=== PATIENT | male | born 1985 | race Caucasian/White ===

== ENCOUNTER 2017-09-18 15:12 | Emergency (ER) | payer MEDICAID ==
--- NOTE | 2017-09-18 15:39 | ER Document Report ---
ED GI/ - General Chief Complaint: Abdominal Pain Stated Complaint: ABDOMINAL PAIN Time Seen by Provider: 09/18/17 15:26 Mode of Arrival: Ambulatory Information source: Patient - HPI Patient complains to provider of: Abdominal pain Notes: 09/18/17 15:37 Patient is here with complaints of abdominal pain. The patient has a history of umbilical hernia. States that he has not had time to have this fixed over the last 3 years. States that earlier today he is the hernia was causing him a great deal of pain. States that it felt hard to the touch. He had one episode of vomiting. No fevers. No diarrhea. No blood thinners. No dysuria or hematuria. No chest pain or shortness of breath. Patient was brought in by EMS. He was given 100 mg of fentanyl which improved his pain. I was able to Trendelenburg the patient and reduce the umbilical hernia, he states that he is feeling significantly better at this time. No other complaints at this time. - Related Data Allergies/Adverse Reactions: No Known Allergies Allergy (Unverified 09/18/17 16:00) Past Medical History - Social History Smoking Status: Unknown if Ever Smoked Family History: Reviewed & Not Pertinent Review of Systems - Review of Systems -: Yes All other systems reviewed and negative Physical Exam - Vital signs Vitals: Temp Pulse Resp BP Pulse Ox 97.5 F 90 18 146/86 H 98 09/18/17 15:27 09/18/17 15:27 09/18/17 15:27 09/18/17 15:27 09/18/17 15:27 - Notes Notes: GENERAL: alert, cooperative, nontoxic, no distress. HEAD: normocephalic, atraumatic EYES: conjunctiva pink without discharge, no external redness or swelling. EARS: no external swelling, no external redness NOSE: atraumatic, no external swelling MOUTH/THROAT: mucous membranes moist and pink, posterior pharynx without erythema, swelling, exudate. No trismus or drooling. NECK: soft, supple, full range of motion, no meningismus. CHEST: no distress, lungs clear and equal throughout. No wheezing, rales, rhonchi. CARDIAC: regular rate and rhythm, no murmur, normal capillary refill, normal pulses. No peripheral edema noted. ABDOMEN: Obese abdomen. Soft. Large umbilical hernia identified. Somewhat firm initially. I was able to reduce the hernia and it became soft and nontender. No other mass identified. BACK: full range of motion, no CVA tenderness. EXTREMITIES: full range of motion of all extremities. No redness, no swelling. NEURO: alert and oriented x 3, no focal deficits, full range of motion of all extremities. PYSCH: appropriate mood, affect. Patient is cooperative. SKIN: pink, warm, dry, no rash. Course - Re-evaluation Re-evalutation: 09/18/17 15:38 Patient noted to have a large umbilical hernia which is moderately tender and semi-firm to touch. I placed the patient in a Trendelenburg position and by applying gentle pressure, was able to reduce the umbilical hernia. Patient will have an IV established, have blood work drawn we will obtain a CT to ensure that the patient does not have any sign of incarcerated hernia. 09/18/17 18:19 Patient is nontoxic appearing with stable vitals. Patient is here with complaints of abdominal pain in his umbilical hernia. When he arrived to the emergency department, he appeared to have a partially incarcerated hernia. I was able to easily reduce this and the patient has a significant reduction in pain. His lab work is all unremarkable, lactate is normal, CT of the abdomen and pelvis shows a fat-containing umbilical hernia with no incarcerated hernia. This point the patient is feeling significantly better. At this point the patient can be discharged home with a referral to surgery. He is instructed to avoid any heavy lifting. To apply an abdominal binder. Follow-up with the surgeon at the next available appointment. Follow-up sooner for worsening pain , fever, persistent vomiting, or for any further concerns. The patient is noted to have elevated blood pressure during today's emergency department visit. The patient was informed of this finding. The patient was instructed that this may be related to pre-hypertension and requires further evaluation with a primary care provider. The patient has no hypertensive symptoms at this time. The patient's emergency department workup and current diagnosis were explained to the patient and or family. Follow-up instructions were provided. Medications if prescribed were discussed. Instructions for when to return to the emergency department including specific worrisome symptoms were discussed with the patient and/or family. - Vital Signs Vital signs: Temp Pulse Resp BP Pulse Ox 97.5 F 90 18 146/86 H 98 09/18/17 15:27 09/18/17 15:27 09/18/17 15:27 09/18/17 15:27 09/18/17 15:27 - Laboratory Result Diagrams: 09/18/17 16:01 09/18/17 16:01 Laboratory results interpreted by me: 09/18/17 09/18/17 09/18/17 16:01 16:01 17:01 MCV 79 L MCH 26.8 L RDW 14.4 H Eosinophils % 7.4 H Absolute Eosinophils 0.7 H Carbon Dioxide 34 H Glucose 120 H Urine Urobilinogen 2.0 H Urine Ascorbic Acid 40 H - Diagnostic Test Radiology reviewed: Image reviewed, Reports reviewed - Fat-containing umbilical hernia. Discharge - Discharge Clinical Impression: Umbilical hernia Qualifiers: Obstruction and gangrene presence: without obstruction or gangrene Qualified Code(s): K42.9 - Umbilical hernia without obstruction or gangrene Condition: Stable Disposition: HOME, SELF-CARE Instructions: Umbilical Hernia ([facility]), Hernia ([facility]) Additional Instructions: Tylenol Motrin as needed for pain. Drink plenty of fluids. Follow-up with surgery at the next available appointment. Avoid any heavy lifting. Abdominal binder to help prevent worsening abdominal pain. Follow-up sooner for worsening pain, fever, persistent vomiting, or for any further concerns. Your blood pressure was elevated during today's visit. Have this rechecked with your doctor. Forms: Elevated Blood Pressure, Smoking Cessation Education Referrals: FRANCK BYRNES MD [ACTIVE STAFF] - Follow up as needed
[2017-09-18 16:16] LABS: ABSOLUTE BASOPHILS # (AUTO) 0.1 10^3/uL (0.0-0.2); ABSOLUTE EOSINOPHILS # (AUTO) 0.7 10^3/uL (0.0-0.6); ABSOLUTE LYMPHOCYTES (AUTO) 1.5 10^3/uL (0.5-4.7); ABSOLUTE MONOCYTES (AUTO) 0.7 10^3/uL (0.1-1.4); ABSOLUTE NEUT (AUTO) 6.7 10^3/uL (1.7-8.2); BASOPHILS % (AUTO) 0.5 % (0-2); EOSINOPHILS % (AUTO) 7.4 % (0-6); HEMATOCRIT 43.4 % (37.9-51.0); HEMOGLOBIN 14.6 g/dL (13.5-17.0); LYMPHOCYTES % (AUTO) 15.9 % (13-45); MEAN CORPUSCULAR HEMOGLOBIN 26.8 pg (27.0-33.4); MEAN CORPUSCULAR HGB CONC 33.7 g/dL (32.0-36.0); MEAN CORPUSCULAR VOLUME 79 fl (80-97); MONOCYTES % (AUTO) 6.9 % (3-13); PLATELET COUNT 269 10^3/uL (150-450); RED BLOOD COUNT 5.47 10^6/uL (4.35-5.55); RED CELL DISTRIBUTION WIDTH 14.4 % (11.5-14.0); SEGMENTED NEUTROPHILS % (AUTO) 69.3 % (42-78); TOTAL CELLS COUNTED % (AUTO) 100 %; WHITE BLOOD COUNT 9.6 10^3/uL (4.0-10.5)
[2017-09-18 16:27] LABS: ALANINE AMINOTRANSFERASE 38 U/L (21-72); ALBUMIN 3.9 g/dL (3.5-5.0); ALKALINE PHOSPHATASE 70 U/L (38-126); ANION GAP 8 (5-19); ASPARTATE AMINO TRANSFERASE 19 U/L (17-59); BILIRUBIN,DIRECT 0.2 mg/dL (0.0-0.4); BILIRUBIN,TOTAL 0.3 mg/dL (0.2-1.3); BLOOD UREA NITROGEN 13 mg/dL (7-20); CALCIUM 9.1 mg/dL (8.4-10.2); CARBON DIOXIDE 34 mmol/L (22-30); CHLORIDE 100 mmol/L (98-107); GLUCOSE 120 mg/dL (75-110); LIPASE 74.1 U/L (23-300); POTASSIUM 4.3 mmol/L (3.6-5.0); SODIUM 141.9 mmol/L (137-145); TOTAL PROTEIN 6.9 g/dL (6.3-8.2)
--- NOTE | 2017-09-18 17:13 | RADIOLOGY REPORT (SQ) ---
EXAM DESCRIPTION: CT ABD/PELVIS WITH IV ONLY COMPLETED DATE/TIME: 09/18/2017 4:50 pm REASON FOR STUDY: umbilcal hernia, abdo pain COMPARISON: None. TECHNIQUE: CT scan of the abdomen and pelvis performed using helical scanning technique with dynamic intravenous contrast injection. No oral contrast. Images reviewed with lung, soft tissue, and bone windows. Reconstructed coronal and sagittal MPR images reviewed. Delayed images for evaluation of the urinary system also acquired. All images stored on PACS. All CT scanners at this facility use dose modulation, iterative reconstruction, and/or weight based d osing when appropriate to reduce radiation dose to as low as reasonably achievable (ALARA). [facility]: Dose Right [facility]: CareDose [facility]: Dose Right [facility]: Teradose 4D [facility]: [email or web address] CONTRAST TYPE AND DOSE: contrast/concentration: Isovue 370.00 mg/ml; Total Contrast Delivered: 100.0 ml; Total Saline Delivered: 61.0 ml RENAL FUNCTION: Creatinine 0.7 RADIATION DOSE: CT Rad equipment meets quality standard of care and radiation dose reduction techniq ues were employed. CTDIvol: 21.1 - 21.1 mGy. DLP: 2530 mGy-cm.. LIMITATIONS: None. FINDINGS: LOWER CHEST: No significant findings. No nodules or infiltrates. LIVER: Normal size. No masses. No dilated ducts. SPLEEN: Normal size. No focal lesions. PANCREAS: No masses. No significant calcifications. No adjacent inflammation or peripancreatic fluid collections. Pancreatic duct not dilated. GALLBLADDER: No identified stones by CT criteria. No inflammatory changes to suggest cholecystitis. ADRENAL GLANDS: No significant masses or asymmetry. RIGHT KIDNEY AND URETER: No solid masses. No significant calcifications. No hydronephrosis or hyd roureter. LEFT KIDNEY AND URETER: No solid masses. No significant calcifications. No hydronephrosis or hydr oureter. AORTA AND VESSELS: No aneurysm. No dissection. Renal arteries, SMA, celiac without stenosis. RETROPERITONEUM: No retroperitoneal adenopathy, hemorrhage or masses. BOWEL AND PERITONEAL CAVITY: No masses or inflammatory changes. No free fluid or peritoneal masses. No CT evidence of bowel obstruction. APPENDIX: Normal. PELVIS: No mass. No free fluid. Normal bladder. ABDOMINAL WALL: There is an umbilical hernia with a 3.5 cm diameter defect at the umbilicus. On ment al fat has herniated into the defect without CT evidence of fat necrosis or inflammation BONES: No significant or acute findings. OTHER: No other significant finding. IMPRESSION: Fat containing umbilical hernia TECHNICAL DOCUMENTATION: JOB ID: [id number] Quality ID # [id number]: Final reports with documentation of one or more dose reduction techniques (e.g., Au tomated exposure control, adjustment of the mA and/or kV according to patient size, use of iterative reconstruction technique) 2010 [employer]- All Rights Reserved Reading location - IP/workstation name: [email or web address]
[2017-09-18 17:29] LABS: APPEARANCE,URINE CLEAR; BILIRUBIN,URINE NEGATIVE (NEGATIVE); COLOR,URINE YELLOW; GLUCOSE, URINE NEGATIVE (NEGATIVE); KETONES,URINE NEGATIVE (NEGATIVE); LEUKOCYTE ESTERASE,URINE NEGATIVE (NEGATIVE); NITRITE,URINE NEGATIVE (NEGATIVE); PROTEIN,URINE NEGATIVE (NEGATIVE); URINE SPECIFIC GRAVITY 1.043
[2017-09-18 19:22] VITALS: BP 140/86
== END 2017-09-18 19:00 | disposition home or self-care (01) ==
LOC: ER 15:12
DX: K42.9 Umbilical hernia without obstruction or gangrene (principal); R10.9 Unspecified abdominal pain
CPT/HCPCS: 36415; 74177; 80053; 81001; 83605; 83690; 85025; 99284

== ENCOUNTER 2017-10-14 04:51 | Emergency (ER) | payer MEDICAID ==
[2017-10-14 06:05] LABS: APPEARANCE,URINE CLOUDY; BILIRUBIN,URINE NEGATIVE (NEGATIVE); COLOR,URINE YELLOW; GLUCOSE, URINE NEGATIVE (NEGATIVE); KETONES,URINE NEGATIVE (NEGATIVE); LEUKOCYTE ESTERASE,URINE LARGE (NEGATIVE); NITRITE,URINE NEGATIVE (NEGATIVE); PROTEIN,URINE 100 mg/dL (NEGATIVE); URINE SPECIFIC GRAVITY 1.021; UROBILINOGEN,URINE NEGATIVE mg/dL (<2.0)
[2017-10-14] MEDS ORDERED: LIDOCAINE 1% INJ-PF (10 MG/ML) 30 ML SDV INJ ONE (06:13)
[2017-10-14] MEDS ORDERED: CEFTRIAXONE INJ 1000 MG VIAL IM ONE (06:13)
--- NOTE | 2017-10-14 06:22 | ER Document Report ---
ED GI/ - General Chief Complaint: Urinary Problem Stated Complaint: BLOOD IN URINE Time Seen by Provider: 10/14/17 06:13 Mode of Arrival: Ambulatory Information source: Patient Notes: Patient is patient is a 31-year-old male who presents to the ER today for 2 days of burning with urination, seeing blood in his urine and body aches. Patient denies any fevers that he knows of but he has not taken his temperature. Patient denies any history of kidney stones or urinary tract infections. Patient is not concerned about any STDs and has had no penile drainage. Patient has no pain to the back or abdomen at all. - Related Data Allergies/Adverse Reactions: No Known Allergies Allergy (Unverified 09/18/17 16:00) Past Medical History - General Information source: Patient - Social History Smoking Status: Unknown if Ever Smoked Family History: Reviewed & Not Pertinent Patient has suicidal ideation: No Patient has homicidal ideation: No Pulmonary Medical History: Reports: Hx Pneumonia Renal/ Medical History: Denies: Hx Peritoneal Dialysis Review of Systems - Review of Systems Constitutional: See HPI EENT: No symptoms reported Cardiovascular: No symptoms reported Respiratory: No symptoms reported Gastrointestinal: No symptoms reported Genitourinary: See HPI Male Genitourinary: No symptoms reported Musculoskeletal: No symptoms reported Skin: No symptoms reported Hematologic/Lymphatic: No symptoms reported Neurological/Psychological: No symptoms reported Physical Exam - Vital signs Vitals: Temp Pulse Resp BP Pulse Ox 99.0 F 117 H 18 141/89 H 97 10/14/17 05:00 10/14/17 05:00 10/14/17 05:00 10/14/17 05:00 10/14/17 05:00 - Notes Notes: PHYSICAL EXAMINATION: GENERAL: Mildly ill-appearing, but in no acute distress. HEAD: Atraumatic, normocephalic. EYES: Pupils equal round and reactive to light, extraocular movements intact, sclera anicteric, conjunctiva are normal. NECK: Normal range of motion, supple without lymphadenopathy LUNGS: CTAB and equal. No wheezes rales or rhonchi. HEART: Regular rate and rhythm without murmurs ABDOMEN: Soft, no tenderness. No guarding, no rebound BACK: no vertebral tenderness, normal ROM GI/: no CVA tenderness EXTREMITIES: Normal range of motion, no pitting edema. No cyanosis. NEUROLOGICAL: Cranial nerves grossly intact. Normal sensory/motor exams. PSYCH: Normal mood, normal affect. SKIN: Warm, Dry, normal turgor, no rashes or lesions noted Course - Re-evaluation Re-evalutation: 10/14/17 07:49 Patient has greater than 182 white blood cells and urinalysis, leukocytes, blood , patient given Rocephin injection here, placed on Cipro I did advise patient that if he starts getting urinary tract infections more frequently or even just the next time he gets when he should see a urologist as it is not normal for males to have urinary tract infections. I did not do any radiology today to search for stone as he has no pain whatsoever. - Vital Signs Vital signs: Temp Pulse Resp BP Pulse Ox 99.4 F 116 H 13 129/75 H 100 10/14/17 06:45 10/14/17 06:45 10/14/17 06:45 10/14/17 06:45 10/14/17 06:45 - Laboratory Laboratory results interpreted by me: 10/14/17 05:50 Urine Protein 100 H Urine Blood LARGE H Ur Leukocyte Esterase LARGE H Urine Ascorbic Acid 20 H Discharge - Discharge Clinical Impression: UTI (urinary tract infection) Qualifiers: Urinary tract infection type: site unspecified Hematuria presence: with hematuria Qualified Code(s): N39.0 - Urinary tract infection, site not specified Condition: Stable Disposition: HOME, SELF-CARE Additional Instructions: Return immediately for any new or worsening symptoms. Follow up with primary care provider, call tomorrow to make followup appointment. Drink plenty of water, refrain from drinking sodas. Prescriptions: Ciprofloxacin HCl [Cipro 500 mg Tablet] 500 mg PO BID #14 tablet Forms: Return to Work
[2017-10-14 06:51] VITALS: BP 129/75
== END 2017-10-14 06:51 | disposition home or self-care (01) ==
LOC: ER 04:51
DX: N39.0 Urinary tract infection, site not specified (principal); R31.9 Hematuria, unspecified; M79.1 Myalgia
CPT/HCPCS: 99283; 96372; 81001; J3490; J0696

== ENCOUNTER → 2017-12-17 | Outpatient (CLI) | payer MEDICAID ==
[2017-12-17 11:47] LABS: ABSOLUTE EOSINOPHILS # (AUTO) 0.9 10^3/uL (0.0-0.6); ABSOLUTE LYMPHOCYTES (AUTO) 1.9 10^3/uL (0.5-4.7); ABSOLUTE MONOCYTES (AUTO) 0.6 10^3/uL (0.1-1.4); ABSOLUTE NEUT (AUTO) 6.4 10^3/uL (1.7-8.2); BASOPHILS % (AUTO) 0.5 % (0-2); HEMATOCRIT 43.6 % (37.9-51.0); HEMOGLOBIN 14.5 g/dL (13.5-17.0); LYMPHOCYTES % (AUTO) 19.5 % (13-45); MEAN CORPUSCULAR HEMOGLOBIN 26.2 pg (27.0-33.4); MEAN CORPUSCULAR HGB CONC 33.2 g/dL (32.0-36.0); MEAN CORPUSCULAR VOLUME 79 fl (80-97); MONOCYTES % (AUTO) 5.7 % (3-13); PLATELET COUNT 287 10^3/uL (150-450); RED BLOOD COUNT 5.53 10^6/uL (4.35-5.55); RED CELL DISTRIBUTION WIDTH 15.2 % (11.5-14.0); SEGMENTED NEUTROPHILS % (AUTO) 65.3 % (42-78); TOTAL CELLS COUNTED % (AUTO) 100 %; WHITE BLOOD COUNT 9.8 10^3/uL (4.0-10.5)
[2017-12-17 12:16] LABS: APPEARANCE,URINE CLEAR; BILIRUBIN,URINE NEGATIVE (NEGATIVE); COLOR,URINE YELLOW; GLUCOSE, URINE NEGATIVE (NEGATIVE); KETONES,URINE NEGATIVE (NEGATIVE); LEUKOCYTE ESTERASE,URINE NEGATIVE (NEGATIVE); NITRITE,URINE NEGATIVE (NEGATIVE); PROTEIN,URINE NEGATIVE (NEGATIVE); URINE SPECIFIC GRAVITY 1.024; UROBILINOGEN,URINE NEGATIVE mg/dL (<2.0)
[2017-12-17 13:11] LABS: ALANINE AMINOTRANSFERASE 45 U/L (21-72); ALKALINE PHOSPHATASE 82 U/L (38-126); ANION GAP 9 (5-19); ASPARTATE AMINO TRANSFERASE 27 U/L (17-59); BILIRUBIN,DIRECT 0.3 mg/dL (0.0-0.4); BILIRUBIN,TOTAL 0.7 mg/dL (0.2-1.3); BLOOD UREA NITROGEN 13 mg/dL (7-20); CALCIUM 9.1 mg/dL (8.4-10.2); CARBON DIOXIDE 32 mmol/L (22-30); CHLORIDE 102 mmol/L (98-107); CHOLESTEROL 155.78 mg/dL (0-200); GLUCOSE 105 mg/dL (75-110); POTASSIUM 4.6 mmol/L (3.6-5.0); SODIUM 143.1 mmol/L (137-145); TOTAL PROTEIN 7.3 g/dL (6.3-8.2); TRIGLYCERIDES 231 mg/dL (<150)
[2017-12-17 13:23] LABS: DIRECT LDL 87 mg/dL (<100)
[2017-12-17 13:25] LABS: VLDL CHOLESTEROL 46.2 mg/dL (10-31)
== END ==
LOC: LAB 10:45
PROVIDERS: ATTEND Internal Medicine
DX: Z00.00 Encounter for general adult medical examination without abnormal findings (principal)
CPT/HCPCS: 36415; 80053; 80061; 81001; 84443; 85025

== ENCOUNTER 2019-08-22 20:35 | Emergency (ER) | payer SELFPAY ==
[2019-08-22] MEDS ORDERED: LIDOCAINE 1%/EPINEPHRINE INJ 20 ML VIAL INJ ONE (20:48)
--- NOTE | 2019-08-22 21:13 | ER Document Report ---
ED General - General Chief Complaint: Skin Problem Stated Complaint: RIGHT LEG BLEEDING Notes: Patient is a 33-year-old white male with past medical history of morbid obesity and varicose veins of the legs who presents to the emergency department with a chief complaint of bleeding varicosity to the right lower anterior extremity that began just prior to arrival. Patient states that he had a scab in this area, reached down to scratch it because it itched and he scratched the scab off which led to bleeding from a pinpoint hole. Patient states he applied pressure with a towel but every time he would remove the towel the wound would continue to ooze blood rapidly. His friend called EMS who wrapped the patient with a hemostatic dressing. Patient then reported here for evaluation. He denies any blunt trauma, fall injury or numbness, tingling or weakness. TRAVEL OUTSIDE OF THE [place] IN LAST 30 DAYS: No - Related Data Allergies/Adverse Reactions: No Known Allergies Allergy (Unverified 09/18/17 16:00) Past Medical History - Social History Smoking Status: Current Every Day Smoker Family History: Reviewed & Not Pertinent Patient has suicidal ideation: No Patient has homicidal ideation: No Pulmonary Medical History: Reports: Hx Pneumonia Renal/ Medical History: Denies: Hx Peritoneal Dialysis Review of Systems - Review of Systems Skin: Lesions Hematologic/Lymphatic: Other - Bleeding -: Yes All other systems reviewed and negative Physical Exam - Vital signs Vitals: Temp Pulse Resp BP Pulse Ox 98.1 F 116 H 18 164/88 H 97 08/22/19 20:42 08/22/19 20:42 08/22/19 20:42 08/22/19 20:42 08/22/19 20:42 - General General appearance: Appears well, Alert - Respiratory Respiratory status: No respiratory distress Chest status: Nontender Breath sounds: Normal Chest palpation: Normal - Cardiovascular Rhythm: Regular Heart sounds: Normal auscultation - Extremities General lower extremity: Other - Nonpitting lower extremity edema. Diffuse varicosities noted. Bleeding from a pinpoint area to the right anterior lower extremity. Course - Re-evaluation Re-evalutation: 08/22/19 21:27 Cautery procedure: The bandage was removed small oozing of bright red blood noted from a pinpoint area in the right lower anterior leg. Leg was then prepped and draped in a sterile fashion. 1% lidocaine with epinephrine was infiltrated causing a slowing of the bleeding. The wound was then cauterized using thermal cautery. Hemostasis was achieved. Patient tolerated well. Was bandaged with a hemostatic dressing. 08/22/19 21:28 We discussed wound care measures and the importance of follow-up for reevaluation. Advised to return here or any ER immediately with any new, pers istent or worsening symptoms. He verbalized understood and agreed. - Vital Signs Vital signs: Temp Pulse Resp BP Pulse Ox 98.1 F 116 H 18 164/88 H 97 08/22/19 20:42 08/22/19 20:42 08/22/19 20:42 08/22/19 20:42 08/22/19 20:42 Discharge - Discharge Clinical Impression: Bleeding from varicose vein Condition: Stable Disposition: HOME, SELF-CARE Instructions: Varicose Veins ([facility]) Additional Instructions: Follow-up with your regular doctor in 2 to 3 days for reevaluation. Return here or any ER immediately with any new, persistent or worsening symptoms.
[2019-08-22 21:39] VITALS: BP 142/73
== END 2019-08-22 22:01 | disposition home or self-care (01) ==
LOC: ER 20:35
DX: I83.891 Varicose veins of right lower extremity with other complications (principal); F17.200 Nicotine dependence, unspecified, uncomplicated; R60.0 Localized edema
CPT/HCPCS: 99283; J3490

== ENCOUNTER 2020-04-06 01:49 | Inpatient (IN) | payer MEDICAID ==
[2020-04-06 03:14] LABS: ABSOLUTE BASOPHILS # (AUTO) 0.1 10^3/uL (0.0-0.2); ABSOLUTE EOSINOPHILS # (AUTO) 0.4 10^3/uL (0.0-0.6); ABSOLUTE LYMPHOCYTES (AUTO) 1.1 10^3/uL (0.5-4.7); ABSOLUTE MONOCYTES (AUTO) 0.5 10^3/uL (0.1-1.4); ABSOLUTE NEUT (AUTO) 10.1 10^3/uL (1.7-8.2); BASOPHILS % (AUTO) 0.8 % (0-2); EOSINOPHILS % (AUTO) 2.9 % (0-6); HEMATOCRIT 42.3 % (37.9-51.0); HEMOGLOBIN 14.2 g/dL (13.5-17.0); LYMPHOCYTES % (AUTO) 9.4 % (13-45); MEAN CORPUSCULAR HEMOGLOBIN 26.2 pg (27.0-33.4); MEAN CORPUSCULAR HGB CONC 33.6 g/dL (32.0-36.0); MEAN CORPUSCULAR VOLUME 78 fl (80-97); PLATELET COUNT 339 10^3/uL (150-450); RED BLOOD COUNT 5.43 10^6/uL (4.35-5.55); RED CELL DISTRIBUTION WIDTH 15.8 % (11.5-14.0); SEGMENTED NEUTROPHILS % (AUTO) 82.9 % (42-78); TOTAL CELLS COUNTED % (AUTO) 100 %; WHITE BLOOD COUNT 12.2 10^3/uL (4.0-10.5)
[2020-04-06 03:49] LABS: ALBUMIN 4.1 g/dL (3.5-5.0); ALKALINE PHOSPHATASE 95 U/L (38-126); ANION GAP 12 (5-19); ASPARTATE AMINO TRANSFERASE 26 U/L (17-59); BILIRUBIN,DIRECT 0.1 mg/dL (0.0-0.4); BILIRUBIN,TOTAL 0.6 mg/dL (0.2-1.3); BLOOD UREA NITROGEN 12 mg/dL (7-20); CALCIUM 9.5 mg/dL (8.4-10.2); CARBON DIOXIDE 26 mmol/L (22-30); CHLORIDE 102 mmol/L (98-107); GLUCOSE 187 mg/dL (75-110); POTASSIUM 3.9 mmol/L (3.6-5.0); TOTAL PROTEIN 7.4 g/dL (6.3-8.2)
[2020-04-06] MEDS ORDERED: MORPHINE SULFATE 10 MG/ML INJ IM ONE (06:04)
[2020-04-06] MEDS ORDERED: MORPHINE SULFATE 10 MG/ML INJ IV ONE ×2 (06:30→07:45)
[2020-04-06] MEDS ORDERED: ONDANSETRON HCL INJ/PF 4 MG/2 ML SDV IV ONE (06:30)
[2020-04-06] MEDS ORDERED: NORMAL SALINE 1000 ML 1,000 ML IV PRN ×2 (06:36→07:03)
--- NOTE | 2020-04-06 06:45 | ER Document Report ---
ED General - General Chief Complaint: Abdominal Pain Stated Complaint: ABDOMINAL PAIN Time Seen by Provider: 04/06/20 06:07 TRAVEL OUTSIDE OF THE [place] IN LAST 30 DAYS: No - HPI Notes: Chief complaint: Abdominal pain and vomiting History of present illness: 34-year-old obese male taking no regular medications with no known allergies presents now with abdominal pain and vomiting since yesterday afternoon. Patient has had a longstanding history of a large umbilical hernia. Says he is seeing a surgeon elsewhere previously regarding elective repair but was told with his BMI was too high and he should lose weight before they consider surgery. He denies fever chills. Last bowel movement yesterday. Severe pain at this time and the area of the hernia. Also we note that there is ulceration of the umbilical area with yellow drainage and he says this is been present for over a month. - Related Data Allergies/Adverse Reactions: No Known Allergies Allergy (Verified 04/06/20 02:31) Past Medical History - General Information source: Patient, [facility] Records - Social History Smoking Status: Current Every Day Smoker Frequency of alcohol use: None Drug Abuse: None Family History: Reviewed & Not Pertinent Pulmonary Medical History: Reports: Hx Pneumonia Renal/ Medical History: Denies: Hx Peritoneal Dialysis Surgical Hx: Negative Review of Systems - Review of Systems Notes: Constitutional: Negative for fever. HENT: Negative for sore throat. Eyes: Negative for visual changes. Cardiovascular: Negative for chest pain. Respiratory: Negative for shortness of breath. Gastrointestinal: As per HPI Genitourinary: Negative for dysuria. Musculoskeletal: Negative for back pain. Skin: Negative for rash. Neurological: Negative for headaches, weakness or numbness. 10 point ROS negative except as marked above and in HPI. Physical Exam - Vital signs Vitals: Temp Pulse Resp BP Pulse Ox 97.3 F 81 16 148/90 H 100 04/06/20 02:41 04/06/20 02:41 04/06/20 02:41 04/06/20 02:41 04/06/20 02:41 - Notes Notes: GENERAL: Morbidly obese male with massive umbilical hernia who is writhing in pain and retching. SKIN: Good turgor no rashes. HEAD: Normocephalic atraumatic. EYES: PERRLA. EOMI. Conjunctivae and sclerae clear. EARS: CANALS AND TMS CLEAR. NOSE: CLEAR. MOUTH: Dry oral mucosa. Good dentition. No stridor or edema. No drooling. NECK: Supple. No masses or thyromegaly. No adenopathy. Carotids 2+ without bruits. No JVD. BACK: Symmetrical without tenderness. CHEST: Respirations unlabored. Breath sounds clear and symmetrical. HEART: Regular rhythm. No murmur gallop or rub. ABDOMEN: Obese male with massive umbilical hernia which is indurated and tender with redness present. There is shallow ulceration of the umbilicus with some crusted yellow drainage. Multiple excoriated skin lesions of the abdominal wall. Bowel sounds are absent. GENITALIA: Deferred. EXTREMITIES: 1+ bilateral pretibial edema. Prominent varicose veins both lower legs. No calf tenderness. Cap refill less than 1.5 seconds. Dorsalis pedis and posterior tibial pulses 3+ and symmetrical. NEUROLOGICAL: GCS 15. Alert and oriented x3. Fluent speech. Cranial nerves II through XII intact. Sensorimotor and cerebellar normal. Normal tone. PSYCHIATRIC: Anxious affect. Course - Re-evaluation Re-evalutation: 04/06/20 06:45 This appears to be an incarcerated hernia. Patient is kept n.p.o. we will give him IV hydration. I have consulted Dr. Nathan the surgical list legal operations manager. Patient has received normal saline, IV morphine and IV Zofran at this time. - Vital Signs Vital signs: Temp Pulse Resp BP Pulse Ox 97.7 F 87 26 H 148/79 H 99 04/06/20 03:11 04/06/20 03:11 04/06/20 03:11 04/06/20 03:11 04/06/20 03:11 - Laboratory Result Diagrams: 04/06/20 02:54 04/06/20 02:54 Laboratory results interpreted by me: 04/06/20 04/06/20 02:54 02:54 WBC 12.2 H MCV 78 L MCH 26.2 L RDW 15.8 H Lymph % (Auto) 9.4 L Absolute Neuts (auto) 10.1 H Seg Neutrophils % 82.9 H Glucose 187 H Discharge - Discharge Clinical Impression: Umbilical hernia, incarcerated Condition: Serious Disposition: ADMITTED INPATIENT Admitting Provider: Surgicalist Unit Admitted: OR
--- NOTE | 2020-04-06 07:00 | PDOC H&P ---
History of Present Illness Patient complains of: Abdominal pain History of Present Illness: JAZMINE LEO is a 34 year old male Who presents emergency department via ground rescue complaining of a 1 day history of abdominal pain, worsening at the skin overlying the umbilicus. Patient has a history of morbid obesity, COPD, acne abuse, uncontrolled diabetes, and 5year history of chronic umbilical hernia. He was seen by surgeon and told he needs to lose weight before the operation was offered. He is seen in the emergency department brought back after 5 hours evaluated found to have an incarcerated umbilical hernia with overlying excoriated skin. Surgery was consulted and he was advised admission. Past Medical History Past Medical History: Obesity, varicose veins, COPD, smoking abuse, skin condition Pulmonary Medical History: Reports: Pneumonia Past Surgical History Past Surgical History: ORIF ankle Social History Information Source: Patient Smoking Status: Current Every Day Smoker Electronic Cigarette use?: No Frequency of Alcohol Use: Rare Hx Recreational Drug Use: No Hx Prescription Drug Abuse: No Family History Family History: None, Reviewed & Not Pertinent Parental Family History Reviewed: No Children Family History Reviewed: No Sibling(s) Family History Reviewed.: No Medication/Allergy Home Medications: Ciprofloxacin HCl [Cipro 500 mg Tablet] 500 mg PO BID #14 tablet 10/14/17 Allergies/Adverse Reactions: No Known Allergies Allergy (Verified 04/06/20 02:31) Review of Systems Constitutional: PRESENT: as per HPI Eyes: ABSENT: visual disturbances Ears: ABSENT: hearing changes Cardiovascular: ABSENT: chest pain, dyspnea on exertion, edema, orthropnea, palpitations Gastrointestinal: PRESENT: other - Last bowel movement yesterday, normal; last meal 9 PM last night Musculoskeletal: PRESENT: other - Varicose veins Neurological: PRESENT: other - No gross deficits Physical Exam Vital Signs: Temp Pulse Resp BP Pulse Ox 97.7 F 87 26 H 148/79 H 99 04/06/20 03:11 04/06/20 03:11 04/06/20 03:11 04/06/20 03:11 04/06/20 03:11 Intake & Output 04/04/20 04/05/20 04/06/20 06:59 06:59 06:59 Weight 166.3 kg General appearance: PRESENT: mild distress Head exam: PRESENT: normocephalic Eye exam: PRESENT: other - Wearing glasses Mouth exam: PRESENT: dry mucosa Neck exam: PRESENT: full ROM Respiratory exam: PRESENT: rhonchi Cardiovascular exam: PRESENT: RRR Pulses: PRESENT: normal femoral pulses, normal dorsalis pedis pul GI/Abdominal exam: PRESENT: other - At least 10 cm diameter umbilical hernia, finding overlying skin, with 2 x 3 cm area of chronic excoriation, epithelialization. Unable to reduce hernia. Remainder of abdomen fairly soft Rectal exam: PRESENT: deferred Extremities exam: PRESENT: full ROM Neurological exam: PRESENT: oriented to person, oriented to place, oriented to time, oriented to situation Psychiatric exam: PRESENT: appropriate affect Skin exam: PRESENT: dry Results Laboratory Results: 04/06/20 02:54 04/06/20 02:54 04/06/20 04/06/20 02:54 02:54 WBC 12.2 H RBC 5.43 Hgb 14.2 Hct 42.3 MCV 78 L MCH 26.2 L MCHC 33.6 RDW 15.8 H Plt Count 339 Seg Neutrophils % 82.9 H Sodium 139.8 Potassium 3.9 Chloride 102 Carbon Dioxide 26 Anion Gap 12 BUN 12 Creatinine 0.62 Est GFR ( Amer) > 60 Glucose 187 H Calcium 9.5 Total Bilirubin 0.6 AST 26 Alkaline Phosphatase 95 Total Protein 7.4 Albumin 4.1 Lipase 78.1 Assessment & Plan - Diagnosis (1) Umbilical hernia, incarcerated Is this a current diagnosis for this admission?: Yes Plan: Impression: Incarcerated umbilical hernia with overlying threatened skin morbidly obese, diabetic, smoker with poor hygiene Recommendations 1. Ideally take patient to have lost weight before fixing this hernia, ever under the above circumstances, I believe we will need to proceed with repair least he presents again with ischemic bowel. 2. We will admit to surgical service, keep n.p.o. on IV fluids, check rapid Covid test, wash the patient. 3. Surgical as of the day, Dr. Corley, will be evaluating patient, and offered surgical details. 4. 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
[2020-04-06] MEDS ORDERED: DEXTROSE 40% GEL 15 GM TUBE PO PRN ×4 (07:03→12:41)
[2020-04-06] MEDS ORDERED: DEXTROSE 50%-WATER 25 GM/50 ML DISP.SYRIN IV PRN ×4 (07:03→12:41)
[2020-04-06] MEDS ORDERED: GLUCAGON,HUMAN RECOMB 1 MG INJ IM PRN (07:03)
--- NOTE | 2020-04-06 07:11 | RADIOLOGY REPORT (SQ) ---
ABDOMINAL RADIOGRAPHS: 04/06/2020 6:08 AM ANGIOGRAPHY TECHNOLOGIST COMPARISON: CT of abdomen and pelvis from 09/18/2017 TECHNIQUE: Two supine radiographs of the abdomen were obtained. HISTORY: 34-year old with abdominal pain. FINDINGS: There are few mildly prominent loops of small bowel within the midline abdomen. There is some fecal material noted at the ascending colon. No abnormal intraabdominal calcifications are seen. There are no findings to suggest organomegaly. The lung bases were not fully included on this examination. IMPRESSION: There is mild prominence of the visualized small bowel which may reflect an ileus or enteritis, less likely an obstructive process.
[2020-04-06] MEDS ORDERED: VANCOMYCIN HCL INJ 1000 MG VIAL IV ONE (07:18)
[2020-04-06] MEDS ORDERED: SUGAMMADEX SODIUM 200 MG/2 ML SDV IV ONE ×2 (08:22→10:23)
[2020-04-06] MEDS ORDERED: MIDAZOLAM 2 MG/2 ML INJ ONE (08:22)
[2020-04-06] MEDS ORDERED: PROPOFOL INJ 200 MG/20 ML VIAL IV ONE (08:22)
[2020-04-06] MEDS ORDERED: HYDROMORPHONE HCL INJ/PF 2 MG/ML AMPULE ONE (08:22)
[2020-04-06] MEDS ORDERED: FENTANYL CITRATE INJ/PF 250 MCG/5 ML AMPULE ONE (08:22)
[2020-04-06] MEDS: VANCOMYCIN HCL 1,500 MG in DEXTROSE 5%-WATER 250 ML IV SCH ×2 (08:40→19:08)
[2020-04-06] MEDS ORDERED: PIPERACILLIN/TAZOBACTAM 3.375 GM VIAL IV ONE (09:06)
[2020-04-06] MEDS ORDERED: FENTANYL CITRATE INJ/PF 100 MCG/2 ML AMPUL ONE (10:23)
[2020-04-06] MEDS ORDERED: MEPERIDINE HCL/PF INJ 25 MG/1 ML DISP.SYRIN IV PRN (10:38)
[2020-04-06] MEDS ORDERED: MORPHINE SULFATE 10 MG/ML INJ IV PRN (10:38)
[2020-04-06] MEDS ORDERED: FENTANYL CITRATE INJ/PF 100 MCG/2 ML AMPUL IV PRN ×3 (10:38)
[2020-04-06] MEDS ORDERED: PROMETHAZINE HCL INJ 25 MG/1 ML VIAL IV PRN ×2 (10:38)
[2020-04-06] MEDS ORDERED: DIPHENHYDRAMINE HCL 50 MG/ML VIAL IV PRN (10:38)
[2020-04-06] MEDS ORDERED: MICROFIBRILLAR COLLAGEN 1 GM PACK ONE ×2 (11:18→11:22)
--- NOTE | 2020-04-06 12:40 | Operative Report ---
Operative Report DATE OF SURGERY: 04/06/20 PREOPERATIVE DIAGNOSIS: incarcarcerated umbilical hernia; morbid obesity POSTOPERATIVE DIAGNOSIS: Same OPERATION: Umbilical herniorrhaphy with absorbable mesh, bilateral component separation; Partial omentectomy SURGEON: JOSEPH JOHNSON ANESTHESIA: GA TISSUE REMOVED OR ALTERED: Umbilical hernia sac and umbilicus with abdominal wall skin COMPLICATIONS: None ESTIMATED BLOOD LOSS: 200 mL INTRAOPERATIVE FINDINGS: Large incarcerated umbilical hernia containing a single loop of small bowel and omentum PROCEDURE: The procedure was done in the open room, the patient was placed in a supine position, general esthesia induced by endotracheal intubation, Thomas catheter and nasogastric tube were inserted, the abdomen prepped and draped usual fashion, a surgical timeout was induced. A midline vertical incision was made from just above and below the large umbilical hernia sac which measured about 20 cm in length and the total surgical incision was about 30 cm. The skin of the abdominal wall was elevated circumferentially around the large umbilical hernia sac and its contents until this was completely dissected down to the anterior abdominal rectus fascia. When this was accomplished, the sac was opened with scissors and with Bovie down to the neck, a large amount of omentum was found inside the sac and this was eviscerated, divided in between hemostats and tied with 2-0 silk sutures, replaced within the peritoneal cavity, the omentum omen thuan was sent to pathology. A loop of small bowel was found to be adherent to the most proximal part of the hernia sac, this was bluntly and sharply dissected and freed. The loop of small bowel was inspected, the few area of deserosalization were identified and repaired with interrupted Lembert 2-0 silk sutures, the small bowel loop was replaced within the peritoneal cavity; no additional abdominal contents were found adherent around the area of the defect. A large piece of absorbable mesh 9 x 15 cm was placed inside the peritoneal cavity and secured to the edges of the umbilical hernia defect using interrupted horizontal 0 Prolene sutures these were placed to centimeter proximal to the hernia defect edge and tied sequentially. When this was accomplished, a bilateral component separation was performed by elevating the lateral abdominal wall incision skin flaps. The subcutaneous fat was from the anterior sheath fascia about 3 inches on each side for entire length of the defect and about 1 inch above and below; the anterior sheath was then divided with Bovie so to obtain a component separation. The midline abdominal wall fascia was then approximated with a running #1 looped PDS suture after the sac of the umbilical hernia was amputated and sent to pathology. Hemostasis was then obtained, the subcutaneous tissue was irrigated until clear; 2 15-Ivorian round Cricket drains were inserted in the right and left lower quadrant, advanced into the surgical field and secured to the skin with 2-0 nylon sutures; Avitene and FloSeal were used on each side of the component separation for hemostasis. The deep subcutaneous tissue was approximated with interrupted [id number] inverted 0-Vicryl sutures; the subcutaneous tissue was approximated with interrupted [id number] of 3-0 Vicryl suture, and the skin was closed with tera. Sterile dressing applied to the wound, the drains were connected to bulb suction, the count of instrument and the sponges was correct x3. The patient tolerated procedure well, was extubated, and transferred to the recovery room in satisfactory conditions.
[2020-04-06] MEDS ORDERED: GLUCAGON,HUMAN RECOMB 1 MG INJ SUBCUT PRN (12:41)
[2020-04-06] MEDS ORDERED: PHARMACY COMMUNICATION ORDER MC NR (12:45)
[2020-04-06] MEDS ORDERED: ONDANSETRON HCL INJ/PF 4 MG/2 ML SDV IV PRN (12:48)
[2020-04-06] MEDS ORDERED: NORMAL SALINE 500 ML IV ONE (12:48)
[2020-04-06] MEDS ORDERED: PIPERACILLIN SODIUM/TAZOBACTAM 3.375 GM in NORMAL SALINE 100 ML IV SCH (14:00)
--- NOTE | 2020-04-06 14:11 | CRITICAL CARE ADMISSION REPORT ---
HPI Date:: 04/06/20 Time:: 13:30 Reason for ICU Reason:: Post-op observation for DANIELLA and obstruction already observed in the PACU. Admission Date/Time & PCP: Admission Date/Time: 04/06/20 12:44 Primary Care Provider: HPI: This patient is a 34 yo man who is morbidly obese and has had an umbilical hernia which he has seen a surgeon for and planned an elective repair when he could loose weight. Over the last 24 hours he has had N/V and abdominal pain prompting him to come to the ED where an incarcerated umbilical hernia was found. This was repaired emergently in the OR by Dr. Corley. In the PACU it was noted that he had DANIELLA behavior with periods of apnea that required stimulation and near constant observation to keep him breathing He is now on bipap and more awake. However he still appears to be having some obstructive symptoms. He is tachycardic, in pain and the use of narcotics in this setting is rife for respiratory complications. A STOP-BANG DANIELLA assessment cannot be done with his present mental status but I expect it to be high. History obtained from:: Anesthesiologist and chart. - Diagnosis/Plan (1) DANIELLA (obstructive sleep apnea) Is this a current diagnosis for this admission?: Yes Plan: This is the main reason for ICU placement, for apneic episodes and monitoring of breathing. (2) COPD (chronic obstructive pulmonary disease) Qualifiers: Emphysema type: unspecified Is this a current diagnosis for this admission?: Yes Plan: He says by history. The details of which are not known. (3) Diabetes mellitus Qualifiers: Diabetes mellitus type: type 2 Diabetes mellitus complication status: without complication Is this a current diagnosis for this admission?: Yes Plan: His BG is 187 right now and he will need a sliding scale until he is eating. (4) Smoker Is this a current diagnosis for this admission?: Yes Plan: Contributing to his respiratory difficulties and if he does have COPD, the lik mabel cause. (5) Umbilical hernia, incarcerated Is this a current diagnosis for this admission?: Yes Plan: Resolved with surgery. Plan Summary: He should be observed in the immediate post-op period. DANIELLA and apnea are possible. When he is awake, off bipap and comfortable he can leave the ICU. Past Medical History Pulmonary Medical History: Reports: Chronic Obstructive Pulmonary Disease (COPD), Pneumonia Endocrine Medical History: Reports: Diabetes Mellitus Type 2 Social/Family History - Social History Smoking Status: Current Every Day Smoker Frequency of Alcohol Use: Rare Hx Recreational Drug Use: No Hx Prescription Drug Abuse: No - Medication/Allergies Home Medications: No Home Medications 04/06/20 Allergies/Adverse Reactions: No Known Allergies Allergy (Verified 04/06/20 02:31) Review of Systems Constitutional: PRESENT: fatigue. ABSENT: chills, fever(s), headache(s), weight gain, weight loss Eyes: ABSENT: visual disturbances Ears: ABSENT: hearing changes Cardiovascular: ABSENT: chest pain, dyspnea on exertion, edema, orthropnea, palpitations Respiratory: ABSENT: cough, hemoptysis Gastrointestinal: PRESENT: abdominal pain - From surgery. ABSENT: constipation, diarrhea, hematemesis, hematochezia, nausea, vomiting Genitourinary: ABSENT: dysuria, hematuria Musculoskeletal: ABSENT: joint swelling Integumentary: ABSENT: rash, wounds Neurological: ABSENT: abnormal gait, abnormal speech, confusion, dizziness, focal weakness, syncope Physical Exam Vital Signs: Temp Pulse Resp BP Pulse Ox 97.4 F 113 H 30 H 145/88 H 91 L 04/06/20 12:29 04/06/20 12:44 04/06/20 12:44 04/06/20 12:44 04/06/20 12:44 Intake & Output 04/05/20 04/06/20 04/07/20 06:59 06:59 06:59 Intake Total 3750 Output Total 1025 Balance 2725 Weight 166.3 kg Weight/Height Weight 166.3 kg Height 5 ft 9 in General appearance: PRESENT: no acute distress, cooperative, morbidly obese, other - Sleepy Head exam: PRESENT: atraumatic, normocephalic Eye exam: PRESENT: conjunctiva pink, EOMI, PERRLA. ABSENT: scleral icterus Ear exam: PRESENT: normal external ear exam Mouth exam: PRESENT: moist, tongue midline Neck exam: PRESENT: other - Thick Respiratory exam: PRESENT: clear to auscultation juan, decreased breath sounds. ABSENT: rales, rhonchi, wheezes Cardiovascular exam: PRESENT: RRR, tachycardia GI/Abdominal exam: PRESENT: normal bowel sounds, soft, other - Umbilicus dressed sterilly. ABSENT: distended, guarding, mass, organolmegaly, rebound, tenderness Rectal exam: PRESENT: deferred Extremities exam: PRESENT: full ROM. ABSENT: calf tenderness, clubbing, pedal edema Neurological exam: PRESENT: alert, awake, oriented to person, oriented to place, oriented to time, oriented to situation, CN II-XII grossly intact. ABSENT: motor sensory deficit Skin exam: PRESENT: dry, intact, warm. ABSENT: cyanosis, rash Tubes/Lines: PRESENT: Other - Bipap Laboratory/Radiographs Laboratory Results: 04/06/20 02:54 04/06/20 02:54 04/06/20 04/06/20 02:54 02:54 WBC 12.2 H RBC 5.43 Hgb 14.2 Hct 42.3 MCV 78 L MCH 26.2 L MCHC 33.6 RDW 15.8 H Plt Count 339 Seg Neutrophils % 82.9 H Sodium 139.8 Potassium 3.9 Chloride 102 Carbon Dioxide 26 Anion Gap 12 BUN 12 Creatinine 0.62 Est GFR ( Amer) > 60 Glucose 187 H Calcium 9.5 Total Bilirubin 0.6 AST 26 Alkaline Phosphatase 95 Total Protein 7.4 Albumin 4.1 Lipase 78.1 Impressions: KUB X-Ray 04/06/20 06:02 IMPRESSION: There is mild prominence of the visualized small bowel which may reflect an ileus or enteritis, less likely an obstructive process. All labs, radiographs, diagnostic studies and EKGs were personally reviewed: Yes In addition, reports of radiographic and diagnostic studies were read: Yes Critical Time Critical Time (minutes): 40 -: The care of a critically ill patient is dynamic. This note represents a static moment in the admission process. Orders and treatments may be given simultaneously and urgently, and time is not outside sales representative of the treatment process. This patient requires Critical Care secondary to life threatening organ or limb dysfunction. Without Critical Care services, the patient is at risk for increased mortality and morbidity.
--- NOTE | 2020-04-06 14:21 | RADIOLOGY REPORT (SQ) ---
EXAM DESCRIPTION: KUB/ABDOMEN (SINGLE VIEW) IMAGES COMPLETED DATE/TIME: 04/06/2020 2:09 pm REASON FOR STUDY: Check Placement of NG Tube COMPARISON: 04/06/2020. NUMBER OF VIEWS: One view. TECHNIQUE: Supine radiographic image of the upper abdomen acquired. LIMITATIONS: None. FINDINGS: BOWEL GAS PATTERN: Normal bowel gas pattern. No dilated loops. CALCIFICATIONS: No suspicious calcifications. SOFT TISSUES: No gross mass or suggestion of organomegaly. HARDWARE: Nasogastric tube, tip at the level of the gastroesophageal junction. Inside hole in the di stal esophagus. BONES: No acute fracture. Degenerative changes in the spine. No worrisome bone lesions. OTHER: No other significant finding. IMPRESSION: TIP OF THE NASOGASTRIC TUBE AT THE LEVEL OF THE GASTROESOPHAGEAL JUNCTION. RECOMMEND AD VANCEMENT BY SEVERAL CM. TECHNICAL DOCUMENTATION: JOB ID: [id number] 2010 [employer]- All Rights Reserved Reading location - IP/workstation name: [email or web address]
--- NOTE | 2020-04-06 14:22 | RADIOLOGY REPORT (SQ) ---
EXAM DESCRIPTION: CHEST SINGLE VIEW IMAGES COMPLETED DATE/TIME: 04/06/2020 2:07 pm REASON FOR STUDY: TLC PLACEMENT COMPARISON: None. EXAM PARAMETERS: NUMBER OF VIEWS: One view. TECHNIQUE: Single frontal radiographic view of the chest acquired. RADIATION DOSE: NA LIMITATIONS: None. FINDINGS: LUNGS AND PLEURA: No opacities, masses or pneumothorax. No pleural effusion. MEDIASTINUM AND HILAR STRUCTURES: No masses. Contour normal. HEART AND VASCULAR STRUCTURES: Heart normal in size. Normal vasculature. BONES: No acute findings. Degenerative changes in the spine. HARDWARE: Central line on the right side, tip at the level of the superior vena cava. Nasogastric tu be, tip at the gastroesophageal junction. OTHER: No other significant finding. IMPRESSION: LIFE LINES DESCRIBED. NO PNEUMOTHORAX. TECHNICAL DOCUMENTATION: JOB ID: [id number] 2010 [employer]- All Rights Reserved Reading location - IP/workstation name: [email or web address]
[2020-04-06] MEDS ORDERED: ENOXAPARIN SODIUM INJ 40 MG/0.4 ML DISP.SYRIN SUBCUT SCH (16:00)
[2020-04-06] MEDS ORDERED: SUCCINYLCHOLINE CHLORIDE INJ 200 MG/10 ML VIAL ONE (16:10)
[2020-04-06] MEDS ORDERED: ROCURONIUM BROMIDE INJ 50 MG/5 ML VIAL IV ONE (16:10)
[2020-04-06] MEDS ORDERED: ONDANSETRON HCL INJ/PF 4 MG/2 ML SDV ONE (16:10)
[2020-04-06] MEDS ORDERED: DEXAMETHASONE SOD PHOSPHATE INJ 4 MG/1 ML VIAL ONE (16:10)
[2020-04-06] MEDS ORDERED: METOCLOPRAMIDE HCL INJ/PF 10 MG/2 ML SDV ONE (16:10)
[2020-04-06 16:17] LABS: APPEARANCE,URINE SLIGHTLY-CLOUDY; BILIRUBIN,URINE NEGATIVE (NEGATIVE); COLOR,URINE YELLOW; GLUCOSE, URINE NEGATIVE (NEGATIVE); KETONES,URINE NEGATIVE (NEGATIVE); LEUKOCYTE ESTERASE,URINE NEGATIVE (NEGATIVE); NITRITE,URINE NEGATIVE (NEGATIVE); PROTEIN,URINE NEGATIVE (NEGATIVE); URINE SPECIFIC GRAVITY 1.014; UROBILINOGEN,URINE NEGATIVE mg/dL (<2.0)
[2020-04-06] MEDS: INSULIN REG, HUMAN 100 UNIT/ML 3 ML VIAL (PYX) SUBCUT SCH ×3 (16:33→23:47)
[2020-04-06] MEDS: NORMAL SALINE 1000 ML 1,000 ML IV PRN ×2 (17:00→23:00)
[2020-04-06] MEDS ORDERED: PIPERACILLIN/TAZOBACTAM 3.375 GM VIAL IV SCH (18:00)
[2020-04-06] MEDS: FAMOTIDINE INJ/PF 20 MG/2 ML SDV IV SCH ×2 (18:55→21:14)
[2020-04-06] MEDS: PIPERACILLIN SODIUM/TAZOBACTAM 3.375 GM in NORMAL SALINE 100 ML IV SCH ×2 (19:08→23:54)
[2020-04-06] MEDS ORDERED: VANCOMYCIN HCL 1,500 MG in DEXTROSE 5%-WATER 250 ML IV SCH (22:00)
[2020-04-06] MEDS ORDERED: VANCOMYCIN HCL 1,000 MG in DEXTROSE 5%-WATER 250 ML IV SCH (22:00)
[2020-04-06] MEDS: KETOROLAC TROMETHAMINE INJ/PF 30 MG/1 ML SDV IV SCH (23:54)
[2020-04-07] MEDS: MORPHINE SULFATE 10 MG/ML INJ IV PRN ×2 (00:55→22:16)
[2020-04-07] MEDS ORDERED: ACETAMINOPHEN 1,000 MG/100 ML RTUPB IV ONE (02:51)
[2020-04-07] MEDS ORDERED: ACETAMINOPHEN 1,000 MG/100 ML RTUPB IV SCH (03:00)
[2020-04-07 04:59] LABS: VENOUS BLOOD BASE EXCESS 3.7 mmol/L; VENOUS BLOOD HCO3 31.3 mmol/L (20-32); VENOUS BLOOD PCO2 61.6 mmHg (35-63); VENOUS BLOOD PH 7.32 (7.30-7.42)
[2020-04-07 05:16] LABS: ABSOLUTE EOSINOPHILS # (AUTO) 0.3 10^3/uL (0.0-0.6); ABSOLUTE LYMPHOCYTES (AUTO) 1.5 10^3/uL (0.5-4.7); ABSOLUTE MONOCYTES (AUTO) 0.8 10^3/uL (0.1-1.4); ABSOLUTE NEUT (AUTO) 6.1 10^3/uL (1.7-8.2); BASOPHILS % (AUTO) 0.4 % (0-2); EOSINOPHILS % (AUTO) 2.9 % (0-6); HEMATOCRIT 36.5 % (37.9-51.0); HEMOGLOBIN 12.4 g/dL (13.5-17.0); LYMPHOCYTES % (AUTO) 17.7 % (13-45); MEAN CORPUSCULAR HEMOGLOBIN 27.1 pg (27.0-33.4); MEAN CORPUSCULAR HGB CONC 34.2 g/dL (32.0-36.0); MEAN CORPUSCULAR VOLUME 79 fl (80-97); MONOCYTES % (AUTO) 8.9 % (3-13); PLATELET COUNT 294 10^3/uL (150-450); RED BLOOD COUNT 4.59 10^6/uL (4.35-5.55); RED CELL DISTRIBUTION WIDTH 16.2 % (11.5-14.0); SEGMENTED NEUTROPHILS % (AUTO) 70.1 % (42-78); TOTAL CELLS COUNTED % (AUTO) 100 %; WHITE BLOOD COUNT 8.7 10^3/uL (4.0-10.5)
[2020-04-07 05:24] LABS: BLOOD UREA NITROGEN 9 mg/dL (7-20); CALCIUM 8.2 mg/dL (8.4-10.2); CHLORIDE 103 mmol/L (98-107); GLUCOSE 125 mg/dL (75-110)
[2020-04-07] MEDS: INSULIN REG, HUMAN 100 UNIT/ML 3 ML VIAL (PYX) SUBCUT SCH ×3 (05:29→17:37)
[2020-04-07] MEDS: KETOROLAC TROMETHAMINE INJ/PF 30 MG/1 ML SDV IV SCH (05:30)
[2020-04-07] MEDS: PIPERACILLIN SODIUM/TAZOBACTAM 3.375 GM in NORMAL SALINE 100 ML IV SCH ×3 (05:30→17:37)
[2020-04-07] MEDS: NORMAL SALINE 1000 ML 1,000 ML IV PRN ×2 (05:42→17:41)
[2020-04-07 05:54] LABS: ANION GAP 5 (5-19); CARBON DIOXIDE 30 mmol/L (22-30); POTASSIUM 4.3 mmol/L (3.6-5.0)
--- NOTE | 2020-04-07 08:33 | PDOC PROGRESS REPORT ---
Subjective Date:: 04/07/20 Subjective:: Patient awake, comfortable, no complaints Reason For Visit: CLOSE MONITORING OF RESPIRATORY STATUS Physical Exam Vital Signs: Temp Pulse Resp BP Pulse Ox 98.7 F 122 H 26 H 108/52 L 100 04/07/20 03:38 04/06/20 20:00 04/07/20 06:00 04/07/20 05:25 04/07/20 06:00 Intake & Output 04/06/20 04/07/20 04/08/20 06:59 06:59 06:59 Intake Total 6750 Output Total 2925 Balance 3825 Weight 166.3 kg 171.6 kg General appearance: PRESENT: no acute distress, obese Respiratory exam: PRESENT: clear to auscultation juan Cardiovascular exam: PRESENT: RRR GI/Abdominal exam: PRESENT: other - Abdomen large for obesity, not tender, midline incision clean dry intact, both Cricket subcutaneous dense filled with serosanguineous fluid, no bowel [id number] Results Laboratory Results: 04/07/20 04:30 04/07/20 04:30 04/06/20 04/07/20 04/07/20 15:37 04:30 04:30 WBC 8.7 RBC 4.59 Hgb 12.4 L Hct 36.5 L MCV 79 L MCH 27.1 MCHC 34.2 RDW 16.2 H Plt Count 294 Seg Neutrophils % 70.1 VBG pH VBG pCO2 VBG HCO3 VBG Base Excess Sodium 138.4 Potassium 4.3 Chloride 103 Carbon Dioxide 30 Anion Gap 5 BUN 9 Creatinine 0.86 Est GFR ( Amer) > 60 Glucose 125 H Calcium 8.2 L Urine Color YELLOW Urine Appearance SLIGHTLY-CLOUDY Urine pH 5.0 Ur Specific [place] 1.014 Urine Protein NEGATIVE Urine Glucose (UA) NEGATIVE Urine Ketones NEGATIVE Urine Blood SMALL H Urine Nitrite NEGATIVE Ur Leukocyte Esterase NEGATIVE Urine WBC (Auto) 2 Urine RBC (Auto) 5 04/07/20 04:30 WBC RBC Hgb Hct MCV MCH MCHC RDW Plt Count Seg Neutrophils % VBG pH 7.32 VBG pCO2 61.6 VBG HCO3 31.3 VBG Base Excess 3.7 Sodium Potassium Chloride Carbon Dioxide Anion Gap BUN Creatinine Est GFR ( Amer) Glucose Calcium Urine Color Urine Appearance Urine pH Ur Specific [place] Urine Protein Urine Glucose (UA) Urine Ketones Urine Blood Urine Nitrite Ur Leukocyte Esterase Urine WBC (Auto) Urine RBC (Auto) Impressions: Chest X-Ray 04/06/20 00:00 IMPRESSION: LIFE LINES DESCRIBED. NO PNEUMOTHORAX. KUB X-Ray 04/06/20 12:46 IMPRESSION: TIP OF THE NASOGASTRIC TUBE AT THE LEVEL OF THE GASTROESOPHAGEAL JUNCTION. RECOMMEND ADVANCEMENT BY SEVERAL CM. Assessment & Plan - Diagnosis (1) Umbilical hernia, incarcerated Is this a current diagnosis for this admission?: Yes (2) COPD (chronic obstructive pulmonary disease) Qualifiers: Emphysema type: unspecified Is this a current diagnosis for this admission?: Yes (3) Diabetes mellitus Qualifiers: Diabetes mellitus type: type 2 Diabetes mellitus complication status: without complication Is this a current diagnosis for this admission?: Yes - Time Anticipated Discharge Disposition: Home, Self Care Anticipated Discharge Timeframe: When medically stable - Plan Summary Plan Summary: Assessment: Postoperative day #1 for repair of incarcerated umbilical hernia with absorbable mesh and bilateral component separation Vital signs stable, patient afebrile NG tube output 750 mL during the past 12 hours Cricket drain output 100 mL in the left, scant amount on the right Urine output good Blood work within normal limits Abdomen soft incision clean Plan: Continue n.p.o. NG tube aspiration Continue IV fluids Up in chair today Incentive spirometer Patient can be transferred to the floor tomorrow or sooner if an ICU bed is needed
[2020-04-07] MEDS: FAMOTIDINE INJ/PF 20 MG/2 ML SDV IV SCH ×2 (10:00→22:26)
[2020-04-07] MEDS ORDERED: VANCOMYCIN HCL INJ 1000 MG VIAL IV SCH (10:00)
[2020-04-07] MEDS ORDERED: VANCOMYCIN HCL 1,500 MG in DEXTROSE 5%-WATER 250 ML IV SCH (11:00)
--- NOTE | 2020-04-07 15:36 | PDOC CRITICAL CARE PROG REPORT ---
General Date:: 04/07/20 ICU Day:: 1 Resuscitation Status: Full Code Review of systems relevant to events:: ICU day:1 Neuro: Patient is awake and alert. Pain well controlled. I have discontinued standing IV Tylenol and standing Toradol. We will observe pain scale with as needed morphine only. Pulmonary: Patient requires nocturnal CPAP support for likely DANIELLA. If possible, we should obtain a sleep study prior to discharge. Given patient's body habitus, DANIELLA likely and he may have a degree of obesity hypoventilation syndrome. We would recommend BiPAP at night for this purpose. Cardiovascular: Hemodynamically stable. No pressors required. Heme: H/H is normal. Normal platelets. DVT prophylaxis: Continue DVT prophylaxis with Lovenox 40 mg subcu daily. Renal: BUN/creatinine normal. IV fluids decreased to normal saline at 125 mL/h. Gastrointestinal: Morbid obesity. Status post umbilical hernia repair. Patient's pain is well controlled. Increased output from NG tube this morning. Will remain n.p.o. for now. GI prophylaxis: Continue Pepcid 20 mg IV every 12. Diet: N.p.o. as above. We will resume p.o. feeding when he has less residuals and signs of bowel recovery ID: No signs of postoperative infection. Out of bed to chair today to avoid pneumonia. Incentive spirometry ordered. Barriers to discharge from ICU: Patient appropriate for transfer to medical service. Reason for ICU Addmission:: Post-op observation for DANIELLA and obstruction already observed in the PACU. - Medications: Medications reviewed and adjusted accordingly: Yes Physical Exam Vital Signs: Temp Pulse Resp BP Pulse Ox 98.7 F 94 24 H 119/65 97 04/07/20 10:00 04/07/20 08:00 04/07/20 14:03 04/07/20 14:03 04/07/20 14:03 Pulse Oximeter Continuous Start: 04/06/20 13:02 Freq: RTQ4 Status: Active Protocol: Document 04/07/20 12:00 [facility] (Rec: 04/07/20 12:23 [facility] [id number]) Pulse Oximetry Assessment Equipment Usage Equipment Standby Continuous SpO2 Machine # monitor Intake & Output 04/06/20 04/07/20 04/08/20 06:59 06:59 06:59 Intake Total 6750 Output Total 4923 500 Balance 3825 -500 Weight 166.3 kg 171.6 kg Weight/Height Weight 171.6 kg Height 5 ft 9 in General appearance: PRESENT: no acute distress, morbidly obese Head exam: PRESENT: atraumatic, normocephalic Eye exam: PRESENT: EOMI, PERRLA Ear exam: PRESENT: normal external ear exam Mouth exam: PRESENT: moist Neck exam: PRESENT: full ROM. ABSENT: carotid bruit, JVD Respiratory exam: PRESENT: unlabored, other - Breath sounds limited by body habitus.. ABSENT: accessory muscle use, prolonged expiratory phas, wheezes Cardiovascular exam: PRESENT: RRR, +S1, +S2. ABSENT: systolic murmur Pulses: PRESENT: normal carotid pulses, +2 pedal pulses bilateral Vascular exam: PRESENT: normal capillary refill GI/Abdominal exam: PRESENT: hypoactive bowel sounds Extremities exam: PRESENT: full ROM Musculoskeletal exam: PRESENT: full ROM, normal inspection Neurological exam: PRESENT: alert, altered, awake, oriented to person, oriented to place, oriented to time, oriented to situation, CN II-XII grossly intact Psychiatric exam: PRESENT: appropriate affect Skin exam: PRESENT: intact, warm Laboratory/Radiographs Laboratory Results: 04/07/20 04:30 04/07/20 04:30 04/06/20 04/07/20 04/07/20 15:37 04:30 04:30 WBC 8.7 RBC 4.59 Hgb 12.4 L Hct 36.5 L MCV 79 L MCH 27.1 MCHC 34.2 RDW 16.2 H Plt Count 294 Seg Neutrophils % 70.1 VBG pH VBG pCO2 VBG HCO3 VBG Base Excess Sodium 138.4 Potassium 4.3 Chloride 103 Carbon Dioxide 30 Anion Gap 5 BUN 9 Creatinine 0.86 Est GFR ( Amer) > 60 Glucose 125 H Calcium 8.2 L Urine Color YELLOW Urine Appearance SLIGHTLY-CLOUDY Urine pH 5.0 Ur Specific [place] 1.014 Urine Protein NEGATIVE Urine Glucose (UA) NEGATIVE Urine Ketones NEGATIVE Urine Blood SMALL H Urine Nitrite NEGATIVE Ur Leukocyte Esterase NEGATIVE Urine WBC (Auto) 2 Urine RBC (Auto) 5 04/07/20 04:30 WBC RBC Hgb Hct MCV MCH MCHC RDW Plt Count Seg Neutrophils % VBG pH 7.32 VBG pCO2 61.6 VBG HCO3 31.3 VBG Base Excess 3.7 Sodium Potassium Chloride Carbon Dioxide Anion Gap BUN Creatinine Est GFR ( Amer) Glucose Calcium Urine Color Urine Appearance Urine pH Ur Specific [place] Urine Protein Urine Glucose (UA) Urine Ketones Urine Blood Urine Nitrite Ur Leukocyte Esterase Urine WBC (Auto) Urine RBC (Auto) Impressions: Chest X-Ray 04/06/20 00:00 IMPRESSION: LIFE LINES DESCRIBED. NO PNEUMOTHORAX. KUB X-Ray 04/06/20 12:46 IMPRESSION: TIP OF THE NASOGASTRIC TUBE AT THE LEVEL OF THE GASTROESOPHAGEAL JUNCTION. RECOMMEND ADVANCEMENT BY SEVERAL CM. All labs, radiographs, diagnostic studies and EKGs were personally reviewed: Yes In addition, reports of radiographic and diagnostic studies were read: Yes Assessment and Plan - Diagnosis (1) DANIELLA (obstructive sleep apnea) Is this a current diagnosis for this admission?: Yes Plan: Patient likely with DANIELLA secondary to obesity. He will require a sleep study prior to obtaining a home CPAP device. Patient has missed an opportunity in the past for a sleep study. He will also most likely need nocturnal BiPAP at home for obesity hypoventilation syndrome. (2) Umbilical hernia, incarcerated Is this a current diagnosis for this admission?: Yes Plan: Status post hernia repair. Patient is recovering well. He continues to remain n.p.o. until better bowel recovery and lower residuals. Mobilize to avoid any pulmonary complications. Incentive spirometer ordered. Critical Time Critical Time (minutes): 35 Level of Care: ICU Anticipated DC Timeframe: within 72 hours -: 1. The care of a critical patient is a dynamic process. This note is a field service representative synopsis but static in nature. The timeframe for treatments given in order is not necessarily the actual time these treatments may have been done. 2. This patient requires critical care secondary to ongoing requirements for therapy not offered or safe outside the critical care environment. Transfer to a lower level of care will result in altered life or limb morbidity and mortality. 3. Multidisciplinary rounds completed. 4. ABCDE bundle addressed.
[2020-04-07] MEDS: VANCOMYCIN HCL 1,500 MG in DEXTROSE 5%-WATER 250 ML IV SCH (22:26)
[2020-04-08] MEDS: INSULIN REG, HUMAN 100 UNIT/ML 3 ML VIAL (PYX) SUBCUT SCH ×5 (00:34→23:19)
[2020-04-08] MEDS: PIPERACILLIN SODIUM/TAZOBACTAM 3.375 GM in NORMAL SALINE 100 ML IV SCH ×4 (00:35→17:45)
--- NOTE | 2020-04-08 01:20 | CDI QUERY ---
<LINNETTE TOM - Last Filed: 04/08/20 01:18> CDI Query CDI Review: Documentation in the Medical Record indicates this patient has: Height: 5 ft 9 in Weight: 171.6 kg (377.52 lbs) Calculated BMI: 55.7 kg / m2 The following is also documented in the Operative Report: PREOPERATIVE DIAGNOSIS: incarcarcerated umbilical hernia; morbid obesity Based on your medical judgement, can you further clarify in the Progress Notes the diagnosis associated with these findings: Morbid Obesity / BMI 55.7 kg/m2 Overweight / BMI 55.7 kg/m2 Obesity / BMI 55.7 kg/m2 Other condition (please specify) None of the above / Not applicable Please note: Obesity is defined as: Class 1: BMI of 30 to < 35 Class 2: BMI of 35 to < 40 Class 3: BMI of > 40 (this is also defined as Morbid Obesity) Overweight: BMI 25 to < 30 Normal weight: BMI 18.5 to < 25 The condition of Morbid Obesity is a significant contributing factor to the health and recovery of a patient. Documentation of the BMI in the Medical Record supports the diagnosis of Morbid Obesity. Thank you for your consideration. ALIRIO Wilson RN [employer] Physician Advisor <JOSEPH JOHNSON - Last Filed: 04/08/20 05:23> CDI Query CDI Review: The patient has morbid obesity class 3 Agree with Query: Yes - morbid obesity class 3
[2020-04-08] MEDS: NORMAL SALINE 1000 ML 1,000 ML IV PRN ×3 (02:09→06:35)
[2020-04-08] MEDS: VANCOMYCIN HCL 1,500 MG in DEXTROSE 5%-WATER 250 ML IV SCH ×2 (06:25→14:41)
[2020-04-08 07:44] LABS: ABSOLUTE BASOPHILS # (AUTO) 0.1 10^3/uL (0.0-0.2); ABSOLUTE EOSINOPHILS # (AUTO) 0.6 10^3/uL (0.0-0.6); ABSOLUTE LYMPHOCYTES (AUTO) 1.5 10^3/uL (0.5-4.7); ABSOLUTE MONOCYTES (AUTO) 0.7 10^3/uL (0.1-1.4); ABSOLUTE NEUT (AUTO) 5.7 10^3/uL (1.7-8.2); BASOPHILS % (AUTO) 0.6 % (0-2); EOSINOPHILS % (AUTO) 7.4 % (0-6); HEMATOCRIT 34.9 % (37.9-51.0); HEMOGLOBIN 11.4 g/dL (13.5-17.0); LYMPHOCYTES % (AUTO) 17.4 % (13-45); MEAN CORPUSCULAR HEMOGLOBIN 26.2 pg (27.0-33.4); MEAN CORPUSCULAR HGB CONC 32.6 g/dL (32.0-36.0); MEAN CORPUSCULAR VOLUME 80 fl (80-97); MONOCYTES % (AUTO) 7.8 % (3-13); PLATELET COUNT 275 10^3/uL (150-450); RED BLOOD COUNT 4.35 10^6/uL (4.35-5.55); SEGMENTED NEUTROPHILS % (AUTO) 66.8 % (42-78); TOTAL CELLS COUNTED % (AUTO) 100 %; WHITE BLOOD COUNT 8.5 10^3/uL (4.0-10.5)
[2020-04-08 07:56] LABS: ANION GAP 8 (5-19); BLOOD UREA NITROGEN 10 mg/dL (7-20); CALCIUM 8.4 mg/dL (8.4-10.2); CARBON DIOXIDE 29 mmol/L (22-30); CHLORIDE 103 mmol/L (98-107); GLUCOSE 108 mg/dL (75-110); POTASSIUM 3.9 mmol/L (3.6-5.0)
[2020-04-08] MEDS ORDERED: INFLUENZA QUAD (6MOS+) 2020-21 VAC 0.5 ML SYR IM ONE (08:00)
[2020-04-08] MEDS: ENOXAPARIN SODIUM INJ 40 MG/0.4 ML DISP.SYRIN SUBCUT SCH (09:44)
[2020-04-08] MEDS: FAMOTIDINE INJ/PF 20 MG/2 ML SDV IV SCH (09:45)
--- NOTE | 2020-04-08 12:12 | PDOC CRITICAL CARE PROG REPORT ---
General Date:: 04/08/20 ICU Day:: 2 Hospital Day:: 2 Resuscitation Status: Full Code Events in the past 12 to 24 Hours:: 04/08/2020: No significant events over the past 24 hours. Patient is comfortable with minimal nausea. He is asking for sips of liquids. Bowel sounds are normal, he is passing gas but has yet to have a bowel movement. NGT still in place. Review of systems relevant to events:: ICU day:1 Neuro: Patient is awake and alert. Pain well controlled. Continue morphine as needed. Pulmonary: Patient requires nocturnal CPAP support for likely DANIELLA. If possible, we should obtain a sleep study immediately upon discharge. Given patient's body habitus, he may also have a degree of obesity hypoventilation syndrome. I would recommend BiPAP at night for this purpose. Cardiovascular: Hemodynamically stable. No pressors required. Heme: H/H is normal. Normal platelets. DVT prophylaxis: Continue DVT prophylaxis with Lovenox 40 mg subcu daily. Renal: BUN/creatinine normal. IV fluids decreased to normal saline at 125 mL/h. Gastrointestinal: Morbid obesity. Status post umbilical hernia repair. P atient's pain is well controlled. Low residuals from NG tube this morning. Allowing small sips of liquids. Diet: N.p.o. other than small sips of liquids. ID: No signs of postoperative infection. Out of bed to chair today to avoid pneumonia. Incentive spirometry ordered. Barriers to discharge from ICU: Patient appropriate for transfer to medical service. Reason for ICU Addmission:: Post-op observation for DANIELLA and obstruction already observed in the PACU. - Medications: Medications reviewed and adjusted accordingly: Yes Physical Exam Vital Signs: Temp Pulse Resp BP Pulse Ox 98.7 F 98 22 H 135/65 H 97 04/08/20 10:00 04/08/20 08:00 04/08/20 10:00 04/08/20 09:26 04/08/20 10:00 Pulse Oximeter Continuous Start: 04/06/20 13:02 Freq: RTQ4 Status: Active Protocol: Document 04/08/20 08:00 TG (Rec: 04/08/20 08:12 TG [email or web address]) Pulse Oximetry Assessment Oxygen Saturation (92-100) 97 Oxygen Flow Rate (L/min) 2 Oxygen Delivery Method Nasal Cannula Fraction of Inspired Oxygen (FIO2) 28 Equipment Usage Equipment in Use Continuous SpO2 Machine # ICU monitor Intake & Output 04/07/20 04/08/20 04/09/20 06:59 06:59 06:59 Intake Total 6750 2815 Output Total 2925 1785 400 Balance 3825 1030 -400 Weight 171.6 kg 169.9 kg Weight/Height Weight 169.9 kg Height 5 ft 9 in General appearance: PRESENT: no acute distress, morbidly obese Head exam: PRESENT: atraumatic, normocephalic Eye exam: PRESENT: EOMI, PERRLA Ear exam: PRESENT: normal external ear exam Mouth exam: PRESENT: dry mucosa Neck exam: PRESENT: full ROM. ABSENT: JVD, lymphadenopathy Respiratory exam: PRESENT: decreased breath sounds, unlabored. ABSENT: rales, rhonchi, stridor Cardiovascular exam: PRESENT: RRR, +S1, +S2 Pulses: PRESENT: +2 pedal pulses bilateral Vascular exam: PRESENT: normal capillary refill GI/Abdominal exam: PRESENT: normal bowel sounds, soft. ABSENT: tenderness Extremities exam: ABSENT: pedal edema Musculoskeletal exam: PRESENT: full ROM, normal inspection Neurological exam: PRESENT: alert, altered, awake, oriented to person, oriented to place, oriented to time, oriented to situation, CN II-XII grossly intact Psychiatric exam: PRESENT: appropriate affect Skin exam: PRESENT: dry, intact, normal color, warm Tubes/Lines: PRESENT: Nasogastic Tube Laboratory/Radiographs Laboratory Results: 04/08/20 06:00 04/08/20 06:00 04/08/20 04/08/20 06:00 06:00 WBC 8.5 RBC 4.35 Hgb 11.4 L Hct 34.9 L MCV 80 MCH 26.2 L MCHC 32.6 RDW 16.0 H Plt Count 275 Seg Neutrophils % 66.8 Sodium 139.5 Potassium 3.9 Chloride 103 Carbon Dioxide 29 Anion Gap 8 BUN 10 Creatinine 0.77 Est GFR ( Amer) > 60 Glucose 108 Calcium 8.4 04/06/20 07:56 Blood Blood Culture (PCR) - Final Staphylococcus Species Impressions: Chest X-Ray 04/06/20 00:00 IMPRESSION: LIFE LINES DESCRIBED. NO PNEUMOTHORAX. KUB X-Ray 04/06/20 12:46 IMPRESSION: TIP OF THE NASOGASTRIC TUBE AT THE LEVEL OF THE GASTROESOPHAGEAL JUNCTION. RECOMMEND ADVANCEMENT BY SEVERAL CM. All labs, radiographs, diagnostic studies and EKGs were personally reviewed: Yes In addition, reports of radiographic and diagnostic studies were read: Yes Assessment and Plan - Diagnosis (1) DANIELLA (obstructive sleep apnea) Is this a current diagnosis for this admission?: Yes Plan: Patient likely with DANIELLA secondary to obesity. He will require a sleep study prior to obtaining a home CPAP device. Patient has missed an opportunity in the past for a sleep study. He will also most likely need nocturnal BiPAP at home for obesity hypoventilation syndrome. (2) Umbilical hernia, incarcerated Is this a current diagnosis for this admission?: Yes Plan: Status post hernia repair. Patient is recovering well. Low residuals this morning, sips of liquid started. NG tube remains in place. Mobilize to avoid any pulmonary complications. Incentive spirometer ordered. Critical Time Critical Time (minutes): 32 Level of Care: ICU Anticipated discharge: Home Anticipated DC Timeframe: within 48 hours -: 1. The care of a critical patient is a dynamic process. This note is a denial management representative synopsis but static in nature. The timeframe for treatments given in order is not necessarily the actual time these treatments may have been done. 2. This patient requires critical care secondary to ongoing requirements for therapy not offered or safe outside the critical care environment. Transfer to a lower level of care will result in altered life or limb morbidity and mortality. 3. Multidisciplinary rounds completed. 4. ABCDE bundle addressed.
[2020-04-08] MEDS ORDERED: HYDROCODONE/ACETAMINOPHEN 10-325 MG TABLET PO PRN (15:12)
[2020-04-08] MEDS ORDERED: MORPHINE SULFATE 10 MG/ML INJ IV PRN (15:12)
--- NOTE | 2020-04-08 20:25 | PDOC PROGRESS REPORT ---
Subjective Date:: 04/08/20 Reason For Visit: CLOSE MONITORING OF RESPIRATORY STATUS Physical Exam Vital Signs: Temp Pulse Resp BP Pulse Ox 98.5 F 98 19 141/78 H 96 04/08/20 14:00 04/08/20 08:00 04/08/20 19:13 04/08/20 19:13 04/08/20 20:14 Pulse Oximeter Continuous Start: 04/06/20 13:02 Freq: RTQ4 Status: Active Protocol: Document 04/08/20 20:14 [facility] (Rec: 04/08/20 20:15 [facility] [email or web address]) Pulse Oximetry Assessment Oxygen Saturation (92-100) 96 Oxygen Delivery Method Room Air Fraction of Inspired Oxygen (FIO2) 21 Equipment Usage Equipment Standby Continuous SpO2 Machine # ICU Monitor Intake & Output 04/07/20 04/08/20 04/09/20 06:59 06:59 06:59 Intake Total 6750 2815 1690 Output Total 2925 1785 1120 Balance 3825 1030 570 Weight 171.6 kg 169.9 kg Results Laboratory Results: 04/08/20 06:00 04/08/20 06:00 04/08/20 04/08/20 06:00 06:00 WBC 8.5 RBC 4.35 Hgb 11.4 L Hct 34.9 L MCV 80 MCH 26.2 L MCHC 32.6 RDW 16.0 H Plt Count 275 Seg Neutrophils % 66.8 Sodium 139.5 Potassium 3.9 Chloride 103 Carbon Dioxide 29 Anion Gap 8 BUN 10 Creatinine 0.77 Est GFR ( Amer) > 60 Glucose 108 Calcium 8.4 04/06/20 07:56 Blood Blood Culture (PCR) - Final Staphylococcus Species Impressions: Chest X-Ray 04/06/20 00:00 IMPRESSION: LIFE LINES DESCRIBED. NO PNEUMOTHORAX. KUB X-Ray 04/06/20 12:46 IMPRESSION: TIP OF THE NASOGASTRIC TUBE AT THE LEVEL OF THE GASTROESOPHAGEAL JUNCTION. RECOMMEND ADVANCEMENT BY SEVERAL CM. Assessment & Plan - Diagnosis (1) Umbilical hernia, incarcerated Is this a current diagnosis for this admission?: Yes - Time Anticipated Discharge Disposition: Home, Self Care Anticipated Discharge Timeframe: unknown - Plan Summary Plan Summary: 34-year-old male status post repair of an incarcerated umbilical hernia. He is doing well today. He is passing flatus. I have removed his NG tube, and started him on a diet. Ambulate. Transfer to floor.
[2020-04-08] MEDS: FAMOTIDINE 20 MG TABLET PO SCH (22:13)
[2020-04-08] MEDS: KETOROLAC TROMETHAMINE INJ/PF 30 MG/1 ML SDV IV SCH (22:14)
[2020-04-09] MEDS: PIPERACILLIN SODIUM/TAZOBACTAM 3.375 GM in NORMAL SALINE 100 ML IV SCH ×3 (00:20→12:31)
[2020-04-09] MEDS: KETOROLAC TROMETHAMINE INJ/PF 30 MG/1 ML SDV IV SCH ×3 (05:11→21:19)
[2020-04-09] MEDS: INSULIN REG, HUMAN 100 UNIT/ML 3 ML VIAL (PYX) SUBCUT SCH ×3 (05:19→18:41)
[2020-04-09 07:20] LABS: ABSOLUTE EOSINOPHILS # (AUTO) 0.8 10^3/uL (0.0-0.6); ABSOLUTE LYMPHOCYTES (AUTO) 1.6 10^3/uL (0.5-4.7); ABSOLUTE MONOCYTES (AUTO) 0.5 10^3/uL (0.1-1.4); ABSOLUTE NEUT (AUTO) 4.5 10^3/uL (1.7-8.2); BASOPHILS % (AUTO) 0.6 % (0-2); EOSINOPHILS % (AUTO) 10.5 % (0-6); HEMATOCRIT 33.6 % (37.9-51.0); HEMOGLOBIN 11.1 g/dL (13.5-17.0); LYMPHOCYTES % (AUTO) 21.1 % (13-45); MEAN CORPUSCULAR HEMOGLOBIN 26.2 pg (27.0-33.4); MEAN CORPUSCULAR VOLUME 79 fl (80-97); MONOCYTES % (AUTO) 6.9 % (3-13); PLATELET COUNT 272 10^3/uL (150-450); RED BLOOD COUNT 4.23 10^6/uL (4.35-5.55); RED CELL DISTRIBUTION WIDTH 15.8 % (11.5-14.0); SEGMENTED NEUTROPHILS % (AUTO) 60.9 % (42-78); TOTAL CELLS COUNTED % (AUTO) 100 %; WHITE BLOOD COUNT 7.4 10^3/uL (4.0-10.5)
[2020-04-09 07:34] LABS: ANION GAP 9 (5-19); BLOOD UREA NITROGEN 11 mg/dL (7-20); CALCIUM 8.5 mg/dL (8.4-10.2); CARBON DIOXIDE 28 mmol/L (22-30); CHLORIDE 102 mmol/L (98-107); GLUCOSE 99 mg/dL (75-110); POTASSIUM 3.7 mmol/L (3.6-5.0)
[2020-04-09] MEDS: FAMOTIDINE 20 MG TABLET PO SCH ×2 (09:13→21:19)
[2020-04-09] MEDS: ENOXAPARIN SODIUM INJ 40 MG/0.4 ML DISP.SYRIN SUBCUT SCH (09:13)
--- NOTE | 2020-04-09 13:59 | PDOC PROGRESS REPORT ---
Subjective Date:: 04/09/20 Reason For Visit: CLOSE MONITORING OF RESPIRATORY STATUS Physical Exam Vital Signs: Temp Pulse Resp BP Pulse Ox 97.7 F 94 18 151/83 H 98 04/09/20 08:30 04/08/20 23:05 04/09/20 08:23 04/09/20 08:23 04/09/20 12:00 Pulse Oximeter Continuous Start: 04/06/20 13:02 Freq: RTQ4 Status: Active Protocol: Document 04/09/20 12:00 TG (Rec: 04/09/20 12:30 TG [email or web address]) Pulse Oximetry Assessment Oxygen Saturation (92-100) 98 Fraction of Inspired Oxygen (FIO2) 21 Equipment Usage Equipment in Use Continuous SpO2 Machine # N4 Intake & Output 04/08/20 04/09/20 04/10/20 06:59 06:59 06:59 Intake Total 2815 1990 420 Output Total 1785 1140 Balance 1030 850 420 Weight 169.9 kg 169.9 kg 169.9 kg Results Laboratory Results: 04/09/20 05:20 04/09/20 05:20 04/09/20 04/09/20 05:20 05:20 WBC 7.4 RBC 4.23 L Hgb 11.1 L Hct 33.6 L MCV 79 L MCH 26.2 L MCHC 33.0 RDW 15.8 H Plt Count 272 Seg Neutrophils % 60.9 Sodium 138.5 Potassium 3.7 Chloride 102 Carbon Dioxide 28 Anion Gap 9 BUN 11 Creatinine 0.78 Est GFR ( Amer) > 60 Glucose 99 Calcium 8.5 04/06/20 07:56 Blood Blood Culture (PCR) - Final Staphylococcus Species Impressions: Chest X-Ray 04/06/20 00:00 IMPRESSION: LIFE LINES DESCRIBED. NO PNEUMOTHORAX. KUB X-Ray 04/06/20 12:46 IMPRESSION: TIP OF THE NASOGASTRIC TUBE AT THE LEVEL OF THE GASTROESOPHAGEAL JUNCTION. RECOMMEND ADVANCEMENT BY SEVERAL CM. Assessment & Plan - Diagnosis (1) Umbilical hernia, incarcerated Is this a current diagnosis for this admission?: Yes - Time Anticipated Discharge Disposition: Home, Self Care Anticipated Discharge Timeframe: within 24 hours - Plan Summary Plan Summary: 34-year-old male status post repair of an incarcerated umbilical hernia. He is doing well today. He is passing flatus. He is tolerating a liquid diet. Remove less productive AC drain today. Aggressive pulmonary toilet. Advance diet. Ambulate. Home soon. OK to shower.
[2020-04-10] MEDS: INSULIN REG, HUMAN 100 UNIT/ML 3 ML VIAL (PYX) SUBCUT SCH ×3 (01:12→11:47)
[2020-04-10] MEDS: KETOROLAC TROMETHAMINE INJ/PF 30 MG/1 ML SDV IV SCH ×2 (05:57→13:57)
[2020-04-10 07:09] LABS: ABSOLUTE EOSINOPHILS # (AUTO) 0.8 10^3/uL (0.0-0.6); ABSOLUTE LYMPHOCYTES (AUTO) 1.6 10^3/uL (0.5-4.7); ABSOLUTE MONOCYTES (AUTO) 0.4 10^3/uL (0.1-1.4); ABSOLUTE NEUT (AUTO) 3.8 10^3/uL (1.7-8.2); BASOPHILS % (AUTO) 0.4 % (0-2); EOSINOPHILS % (AUTO) 11.8 % (0-6); HEMATOCRIT 32.8 % (37.9-51.0); LYMPHOCYTES % (AUTO) 24.8 % (13-45); MEAN CORPUSCULAR HEMOGLOBIN 26.3 pg (27.0-33.4); MEAN CORPUSCULAR HGB CONC 33.5 g/dL (32.0-36.0); MEAN CORPUSCULAR VOLUME 79 fl (80-97); MONOCYTES % (AUTO) 6.4 % (3-13); PLATELET COUNT 295 10^3/uL (150-450); RED BLOOD COUNT 4.17 10^6/uL (4.35-5.55); RED CELL DISTRIBUTION WIDTH 15.5 % (11.5-14.0); SEGMENTED NEUTROPHILS % (AUTO) 56.6 % (42-78); TOTAL CELLS COUNTED % (AUTO) 100 %; WHITE BLOOD COUNT 6.6 10^3/uL (4.0-10.5)
[2020-04-10 07:30] LABS: ANION GAP 11 (5-19); BLOOD UREA NITROGEN 15 mg/dL (7-20); CALCIUM 8.7 mg/dL (8.4-10.2); CARBON DIOXIDE 27 mmol/L (22-30); CHLORIDE 102 mmol/L (98-107); GLUCOSE 87 mg/dL (75-110); POTASSIUM 3.8 mmol/L (3.6-5.0)
--- NOTE | 2020-04-10 09:12 | PDOC PROGRESS REPORT ---
Subjective Date:: 04/10/20 Reason For Visit: CLOSE MONITORING OF RESPIRATORY STATUS Physical Exam Vital Signs: Temp Pulse Resp BP Pulse Ox 97.3 F 85 17 135/71 H 96 04/10/20 07:35 04/10/20 07:35 04/10/20 07:35 04/10/20 07:35 04/10/20 07:49 Pulse Oximeter Continuous Start: 04/06/20 13:02 Freq: RTQ4 Status: Active Protocol: Document 04/10/20 07:49 [facility] (Rec: 04/10/20 07:57 [facility] [email or web address]) Pulse Oximetry Assessment Oxygen Saturation (92-100) 96 Oxygen Delivery Method Room Air Fraction of Inspired Oxygen (FIO2) 21 Equipment Usage Equipment in Use Continuous SpO2 Machine # N4 Intake & Output 04/09/20 04/10/20 04/11/20 06:59 06:59 06:59 Intake Total 19890 Output Total 1140 250 Balance 850 920 Weight 169.9 kg 169.9 kg Results Laboratory Results: 04/10/20 05:20 04/10/20 05:20 04/10/20 04/10/20 05:20 05:20 WBC 6.6 RBC 4.17 L Hgb 11.0 L Hct 32.8 L MCV 79 L MCH 26.3 L MCHC 33.5 RDW 15.5 H Plt Count 295 Seg Neutrophils % 56.6 Sodium 140.4 Potassium 3.8 Chloride 102 Carbon Dioxide 27 Anion Gap 11 BUN 15 Creatinine 0.80 Est GFR ( Amer) > 60 Glucose 87 Calcium 8.7 04/06/20 07:56 Blood Blood Culture (PCR) - Final Staphylococcus Species Impressions: Chest X-Ray 04/06/20 00:00 IMPRESSION: LIFE LINES DESCRIBED. NO PNEUMOTHORAX. KUB X-Ray 04/06/20 12:46 IMPRESSION: TIP OF THE NASOGASTRIC TUBE AT THE LEVEL OF THE GASTROESOPHAGEAL JUNCTION. RECOMMEND ADVANCEMENT BY SEVERAL CM. Assessment & Plan - Diagnosis (1) Umbilical hernia, incarcerated Is this a current diagnosis for this admission?: Yes - Time Anticipated Discharge Disposition: Home, Self Care Anticipated Discharge Timeframe: within 24 hours - Plan Summary Plan Summary: 34-year-old male status post repair of an incarcerated umbilical hernia. He is doing well today. He is passing flatus. He is tolerating a regular diet. Aggressive pulmonary toilet. Ambulate. Home soon. OK to shower.
[2020-04-10] MEDS: ENOXAPARIN SODIUM INJ 40 MG/0.4 ML DISP.SYRIN SUBCUT SCH (10:12)
[2020-04-10] MEDS: FAMOTIDINE 20 MG TABLET PO SCH (10:13)
--- NOTE | 2020-04-10 13:13 | PDOC DISCHARGE SUMMARY ---
General - Admit/Disc Date/PCP Admission Date/Primary Care Provider: 04/06/20 12:44 Discharge Date: 04/10/20 - Discharge Diagnosis Final Diagnosis: Incarcerated umbilical hernia - Assessment Summary: This is a morbidly obese 34-year-old male who was admitted to the hospital approximately 4 days ago for incarcerated umbilical hernia. He underwent repair that postoperatively was treated for an ileus with an NG tube. He also had obstructive sleep apnea and medicine hospitalist was consulted for management of the sleep apnea. Over the course of the postoperative 4 days he slowly improved to the point where he started having bowel movements his NG tube was removed and he was started on a regular diet. He was treated for the obstructive sleep apnea with his CPAP device and and the medical hospitalist felt that the patient could now return home postoperatively. He is now tolerating a regular diet and ready for discharge home. - Additional Information Resuscitation Status: Full Code Discharge Diet: As Tolerated Discharge Activity: Balance Activity w/Rest - Patient can follow-up in surgical clinic in 7 to 10 days, No Lifting Over 10 Pounds Prescriptions: Hydrocodone/Acetaminophen [[place] 10-325 mg Tablet] 1 tab PO Q6HP PRN #20 tablet PRN Reason: For Pain Home Medications: Hydrocodone/Acetaminophen [[place] 10-325 mg Tablet] 1 tab PO Q6HP PRN #20 tablet 04/10/20 History of Present Illiness History of Present Illness: JAZMINE LEO is a 34 year old male Physical Exam Vital Signs: Temp Pulse Resp BP Pulse Ox 98.3 F 73 21 H 149/84 H 96 04/10/20 11:54 04/10/20 11:54 04/10/20 11:54 04/10/20 11:54 04/10/20 11:54 Pulse Oximeter Continuous Start: 04/06/20 13:02 Freq: RTQ4 Status: Active Protocol: Document 04/10/20 07:49 [facility] (Rec: 04/10/20 07:57 [facility] [id number]) Pulse Oximetry Assessment Oxygen Saturation (92-100) 96 Oxygen Delivery Method Room Air Fraction of Inspired Oxygen (FIO2) 21 Equipment Usage Equipment in Use Continuous SpO2 Machine # [id number] Intake & Output 04/09/20 04/10/20 04/11/20 06:59 06:59 06:59 Intake Total 1989 1170 425 Output Total 1140 250 Balance 850 920 425 Weight 169.9 kg 169.9 kg Results Laboratory Results: WBC 6.6 10^3/uL (4.0-10.5) 04/10/20 05:20 RBC 4.17 10^6/uL (4.35-5.55) L 04/10/20 05:20 Hgb 11.0 g/dL (13.5-17.0) L 04/10/20 05:20 Hct 32.8 % (37.9-51.0) L 04/10/20 05:20 MCV 79 fl (80-97) L 04/10/20 05:20 MCH 26.3 pg (27.0-33.4) L 04/10/20 05:20 MCHC 33.5 g/dL (32.0-36.0) 04/10/20 05:20 RDW 15.5 % (11.5-14.0) H 04/10/20 05:20 Plt Count 295 10^3/uL (150-450) 04/10/20 05:20 Lymph % (Auto) 24.8 % (13-45) 04/10/20 05:20 [place] % (Auto) 6.4 % (3-13) 04/10/20 05:20 Eos % (Auto) 11.8 % (0-6) H 04/10/20 05:20 Baso % (Auto) 0.4 % (0-2) 04/10/20 05:20 Absolute Neuts (auto) 3.8 10^3/uL (1.7-8.2) 04/10/20 05:20 Absolute Lymphs (auto) 1.6 10^3/uL (0.5-4.7) 04/10/20 05:20 Absolute Monos (auto) 0.4 10^3/uL (0.1-1.4) 04/10/20 05:20 Absolute Eos (auto) 0.8 10^3/uL (0.0-0.6) H 04/10/20 05:20 Absolute Basos (auto) 0.0 10^3/uL (0.0-0.2) 04/10/20 05:20 Seg Neutrophils % 56.6 % (42-78) 04/10/20 05:20 VBG pH 7.32 (7.30-7.42) 04/07/20 04:30 VBG pCO2 61.6 mmHg (35-63) 04/07/20 04:30 VBG HCO3 31.3 mmol/L (20-32) 04/07/20 04:30 VBG Base Excess 3.7 mmol/L 04/07/20 04:30 Sodium 140.4 mmol/L (137-145) 04/10/20 05:20 Potassium 3.8 mmol/L (3.6-5.0) 04/10/20 05:20 Chloride 102 mmol/L (98-107) 04/10/20 05:20 Carbon Dioxide 27 mmol/L (22-30) 04/10/20 05:20 Anion Gap 11 (5-19) 04/10/20 05:20 BUN 15 mg/dL (7-20) 04/10/20 05:20 Creatinine 0.80 mg/dL (0.52-1.25) 04/10/20 05:20 Est GFR ( Amer) > 60 (>60) 04/10/20 05:20 Est GFR (MDRD) Non-Af > 60 (>60) 04/10/20 05:20 Glucose 87 mg/dL (75-110) 04/10/20 05:20 POC Glucose 100 mg/dL (70-110) 04/10/20 11:19 Calcium 8.7 mg/dL (8.4-10.2) 04/10/20 05:20 Total Bilirubin 0.6 mg/dL (0.2-1.3) 04/06/20 02:54 Direct Bilirubin 0.1 mg/dL (0.0-0.4) 04/06/20 02:54 Neonat Total Bilirubin Not Reportable 04/06/20 02:54 Neonat Direct Bilirubin Not Reportable 04/06/20 02:54 Neonat Indirect Bili Not Reportable 04/06/20 02:54 AST 26 U/L (17-59) 04/06/20 02:54 ALT 37 U/L (<50) 04/06/20 02:54 Alkaline Phosphatase 95 U/L (38-126) 04/06/20 02:54 Total Protein 7.4 g/dL (6.3-8.2) 04/06/20 02:54 Albumin 4.1 g/dL (3.5-5.0) 04/06/20 02:54 Lipase 78.1 U/L (23-300) 04/06/20 02:54 Urine Color YELLOW 04/06/20 15:37 Urine Appearance SLIGHTLY-CLOUDY 04/06/20 15:37 Urine pH 5.0 (5.0-9.0) 04/06/20 15:37 Ur Specific [place] 1.014 04/06/20 15:37 Urine Protein NEGATIVE mg/dL (NEGATIVE) 04/06/20 15:37 Urine Glucose (UA) NEGATIVE mg/dL (NEGATIVE) 04/06/20 15:37 Urine Ketones NEGATIVE mg/dL (NEGATIVE) 04/06/20 15:37 Urine Blood SMALL (NEGATIVE) H 04/06/20 15:37 Urine Nitrite NEGATIVE (NEGATIVE) 04/06/20 15:37 Urine Bilirubin NEGATIVE (NEGATIVE) 04/06/20 15:37 Urine Urobilinogen NEGATIVE mg/dL (<2.0) 04/06/20 15:37 Ur Leukocyte Esterase NEGATIVE (NEGATIVE) 04/06/20 15:37 Urine WBC (Auto) 2 /HPF 04/06/20 15:37 Urine RBC (Auto) 5 /HPF 04/06/20 15:37 Urine Mucus (Auto) RARE /LPF 04/06/20 15:37 Urine Ascorbic Acid NEGATIVE (NEGATIVE) 04/06/20 15:37 SARS-CoV-2 (PCR) NEGATIVE (NEGATIVE) 04/06/20 06:55 Impressions: Chest X-Ray 04/06/20 00:00 IMPRESSION: LIFE LINES DESCRIBED. NO PNEUMOTHORAX. KUB X-Ray 04/06/20 06:02 IMPRESSION: There is mild prominence of the visualized small bowel which may reflect an ileus or enteritis, less likely an obstructive process. KUB X-Ray 04/06/20 12:46 IMPRESSION: TIP OF THE NASOGASTRIC TUBE AT THE LEVEL OF THE GASTROESOPHAGEAL JUNCTION. RECOMMEND ADVANCEMENT BY SEVERAL CM.
[2020-04-10 14:42] VITALS: BP 148/79
== END 2020-04-10 17:01 | disposition home or self-care (01) | DRG 354 ==
LOC: ER 01:49 → EH 07:05 → INTOOBSV 07:05 → OBSVTOIN 12:44 → ICU 14:26 → 4N 04-08 20:42
PROVIDERS: ADMIT Anesthesiology; ATTEND Anesthesiology
PROC: 0DBU0ZZ Excision of Omentum, Open Approach (ICD-10-PCS; 2020-04-06)
PROC: 5A09557 Assistance with Respiratory Ventilation, Greater than 96 Consecutive Hours, Continuous Positive Airway Pressure (ICD-10-PCS; 2020-04-06)
PROC: 0WUF0JZ Supplement Abdominal Wall with Synthetic Substitute, Open Approach (ICD-10-PCS; principal; 2020-04-06 09:00)
DX: K42.0 Umbilical hernia with obstruction, without gangrene (principal); E66.2 Morbid (severe) obesity with alveolar hypoventilation; Z68.43 Body mass index [BMI] 50.0-59.9, adult; J44.9 Chronic obstructive pulmonary disease, unspecified; E66.01 Morbid (severe) obesity due to excess calories; G47.33 Obstructive sleep apnea (adult) (pediatric); I87.303 Chronic venous hypertension (idiopathic) without complications of bilateral lower extremity; E08.622 Diabetes mellitus due to underlying condition with other skin ulcer; E08.65 Diabetes mellitus due to underlying condition with hyperglycemia; F17.210 Nicotine dependence, cigarettes, uncomplicated; Z20.828 Contact with and (suspected) exposure to other viral communicable diseases
CPT/HCPCS: 00830; 36415; 71045; 74018; 80048; 80053; 81001; 82803; 82962; 83690; 85025; 87040; 87077; 87150; 87186; 87635; 88302; 88304; 94660; 94762; 96374; 96375; 99140; 99285; 99291; C1781; C9803; J0131; J0330; J1100; J1170; J1642; J1650; J1885; J2250; J2270; J2405; J2543; J2704; J2765; J3010; J3370; J3490; J7030; J7050; J7060; S0028

== ENCOUNTER 2020-04-23 15:00 | Inpatient (IN) | payer MEDICAID ==
--- NOTE | 2020-04-23 17:35 | ER Document Report ---
ED Medical Screen (RME) - General Chief Complaint: Wound Recheck Stated Complaint: WOUND CHECK/FROM DRAINAGE TUBE Time Seen by Provider: 04/23/20 17:27 Mode of Arrival: Ambulatory Information source: Patient Notes: Patient is a 34-year-old male comes emergency room status post hernia repair on 06 April. According patient it was emergency surgery that was done in the emergency room. He states it was packed and had a drain in it until this past Sunday he went to the surgeon's office and they remove the drain and he said that the nurse who removed it told him that it should start healing up. He has an appointment with them on this coming Sunday for reevaluation. He states that ever since that it was drained was told that he has been having large amounts of bloody fluid type leakage from the wound itself. Patient states that he is also run out of his dressing materials. He denies any major pain currently. He does state that he is currently taking Keflex. Physical examination: Patient is a morbidly obese 34-year-old male who is in no apparent distress on examination this evening. Cardiac: Patient has a tachycardic rate at 106 bpm on monitor no auscultated murmurs heard. Lungs: Bilateral breath sounds decreased throughout no rhonchi rales or wheeze heard. Abdomen: Estimated patient is at a very low tone abdominal area. He has multiple layers of dressing in place around his umbilicus area. He has a large tape to the area as well. At this point he will need to be reevaluated back. Patient unsure of the whether he needs to have a drain placed back in order or if he can wait until he sees a surgeon in follow-up on Sunday. Since patient has a bloody type of discharge from the wound area we will go ahead and just recheck a CBC on him at this time. I have greeted and performed a rapid initial assessment of this patient. A comprehensive ED assessment and evaluation of the patient, analysis of test results and completion of the medical decision making process will be conducted by additional ED providers. Dictation of this chart was performed using voice recognition software; therefore, there may be some unintended grammatical errors. TRAVEL OUTSIDE OF THE [place] IN LAST 30 DAYS: No - Related Data Allergies/Adverse Reactions: No Known Allergies Allergy (Verified 04/06/20 02:31) Past Medical History Pulmonary Medical History: Reports: Hx COPD, Hx Pneumonia Endocrine Medical History: Reports: Hx Diabetes Mellitus Type 2 Renal/ Medical History: Denies: Hx Peritoneal Dialysis Psychiatric Medical History: Denies: Hx Depression Physical Exam - Vital signs Vitals: Temp Pulse Resp BP Pulse Ox 98.2 F 106 H 22 H 150/108 H 96 04/23/20 15:59 04/23/20 15:59 04/23/20 15:59 04/23/20 15:59 04/23/20 15:59 Course - Vital Signs Vital signs: Temp Pulse Resp BP Pulse Ox 98.2 F 106 H 22 H 150/108 H 96 04/23/20 15:59 04/23/20 15:59 04/23/20 15:59 04/23/20 15:59 04/23/20 15:59
[2020-04-23 18:36] LABS: ABSOLUTE BASOPHILS # (AUTO) 0.1 10^3/uL (0.0-0.2); ABSOLUTE EOSINOPHILS # (AUTO) 0.6 10^3/uL (0.0-0.6); ABSOLUTE LYMPHOCYTES (AUTO) 1.5 10^3/uL (0.5-4.7); ABSOLUTE MONOCYTES (AUTO) 0.6 10^3/uL (0.1-1.4); BASOPHILS % (AUTO) 0.7 % (0-2); EOSINOPHILS % (AUTO) 6.2 % (0-6); HEMATOCRIT 36.3 % (37.9-51.0); HEMOGLOBIN 11.9 g/dL (13.5-17.0); LYMPHOCYTES % (AUTO) 15.6 % (13-45); MEAN CORPUSCULAR HEMOGLOBIN 25.5 pg (27.0-33.4); MEAN CORPUSCULAR HGB CONC 32.8 g/dL (32.0-36.0); MEAN CORPUSCULAR VOLUME 78 fl (80-97); MONOCYTES % (AUTO) 6.2 % (3-13); PLATELET COUNT 537 10^3/uL (150-450); RED BLOOD COUNT 4.67 10^6/uL (4.35-5.55); RED CELL DISTRIBUTION WIDTH 15.5 % (11.5-14.0); SEGMENTED NEUTROPHILS % (AUTO) 71.3 % (42-78); TOTAL CELLS COUNTED % (AUTO) 100 %; WHITE BLOOD COUNT 9.8 10^3/uL (4.0-10.5)
[2020-04-23 19:08] LABS: ALBUMIN 3.5 g/dL (3.5-5.0); ALKALINE PHOSPHATASE 89 U/L (38-126); ANION GAP 6 (5-19); ASPARTATE AMINO TRANSFERASE 30 U/L (17-59); BILIRUBIN,DIRECT 0.3 mg/dL (0.0-0.4); BILIRUBIN,TOTAL 0.6 mg/dL (0.2-1.3); BLOOD UREA NITROGEN 7 mg/dL (7-20); CALCIUM 9.2 mg/dL (8.4-10.2); CARBON DIOXIDE 29 mmol/L (22-30); CHLORIDE 101 mmol/L (98-107); GLUCOSE 99 mg/dL (75-110); POTASSIUM 4.3 mmol/L (3.6-5.0)
--- NOTE | 2020-04-24 00:33 | ER Document Report ---
ED General - General Chief Complaint: Wound Recheck Stated Complaint: WOUND CHECK/FROM DRAINAGE TUBE Time Seen by Provider: 04/23/20 17:27 Primary Care Provider: PORTER REDDING [Primary Care Provider] - Follow up as needed Mode of Arrival: Ambulatory TRAVEL OUTSIDE OF THE [place] IN LAST 30 DAYS: No - HPI Context: This is a 34-year-old male who is presenting complaining of drainage from a postoperative wound. Patient was seen at this facility on 04/06/2020 for a incarcerated umbilical hernia with he underwent surgery for. Patient underwent surgical repair for this and was discharged by Dr. Padgett on 04/10/2020. Patient states that the surgical wound was packed and had a drain placed in until approximately 6 days ago. At that time he went to the surgeon's office, the drain was removed and the patient was instructed that the wound started healing up from the inside towards the outside. Patient states that since the wound has had the drain removed it continues to drain purulent drainage that is soaking multiple pads. Patient denies having any pain related to this but he states he is out over the dressing materials that he was provided and the wound continues to leak. Patient denies fever, chills, chest pain, shortness of breath, nausea, vomiting, history of COVID-19 infection, known exposure to the persons positive for COVID-19 or persons under investigation for COVID-19. Patient denies exacerbating or alleviating factors in terms of the discharge from the wound. Associated symptoms: Other - See HPI Exacerbated by: Other - See HPI Relieved by: Other - See HPI - Related Data Allergies/Adverse Reactions: No Known Allergies Allergy (Verified 04/24/20 00:05) Past Medical History - General Information source: Patient - Social History Smoking Status: Unknown if Ever Smoked Family History: None, Reviewed & Not Pertinent Patient has homicidal ideation: No Pulmonary Medical History: Reports: Hx COPD, Hx Pneumonia Endocrine Medical History: Reports: Hx Diabetes Mellitus Type 2 Renal/ Medical History: Denies: Hx Peritoneal Dialysis Psychiatric Medical History: Denies: Hx Depression Past Surgical History: Reports: Hx Abdominal Surgery - hernia repair Review of Systems - Review of Systems Notes: Review of systems as below unless otherwise stated in HPI. CONSTITUTIONAL [No] fever, [No] chills. EYES [No] eye pain. ENT [No] URI symptoms, [No] sore throat, [No] ear pain. CARDIOVASCULAR [No] chest pain, [No] palpitations, [No] edema. RESPIRATORY [No] Cough, [No] SOB, [No] wheezing. GASTROINTESTINAL [No] abdominal pain, [No] nausea, [No] Diarrhea, [No] Vomiting, [No] constipation, [No] melena, [No] rectal bleeding. + drainage from abdominal cortés rgical site GENITOURINARY [No] dysuria, [No] urinary frequency, [No] hematuria, [No] urinary urgency MUSCULOSKELETAL [No] Back pain. SKIN [No] Rash. + drainage from abdominal surgical site NEUROLOGIC [No] Headache, [No] recent seizures, [No] paralysis,[No] parathesias. ENDOCRINE [No] polyuria. HEMO/LYMPATIC [No] easy brusing PSYCHIATRIC [No] depression. Physical Exam - Vital signs Vitals: Temp Pulse Resp BP Pulse Ox 98.2 F 106 H 22 H 150/108 H 96 04/23/20 15:59 04/23/20 15:59 04/23/20 15:59 04/23/20 15:59 04/23/20 15:59 - Notes Notes: CONSTITUTIONAL [Vital signs reviewed, Patient appears comfortable, Alert and oriented X 3, Normal stature.] HEAD [Atraumatic, Normocephalic.] EYES [Eyes are normal to inspection, No discharge from eyes, Extraocular muscles intact, Sclera are normal, Conjunctiva are normal.] ENT [External ears normal to inspection, Nose examination normal, Mouth normal to inspection.] NECK [Normal ROM, No jugular venous distention, No meningeal signs, ] RESPIRATORY CHEST [Chest is nontender, Breath sounds normal, No respiratory distress.] CARDIOVASCULAR [RRR, No murmurs, Normal S1 S2, No rub, No gallop.] ABDOMEN [Abdomen is nontender, No pulsatile masses, No other masses, Bowel sounds normal, No distension, No peritoneal signs. There is a midline surgical incision that appears to be kept intact with tera except at the terminal end where there is a small amount of dehiscence in exuding from the site is a small amount of purulent drainage. Surgical site is nontender to palpation] BACK [There is no CVA Tenderness, There is no tenderness to palpation, Normal inspection.] UPPER EXTREMITY [Inspection normal, No cyanosis, No clubbing, No edema, LOWER EXTREMITY [Inspection normal, No cyanosis, No clubbing, No edema, No calf tenderness, NEURO [No focal motor deficits, No focal sensory deficits, Speech normal.] SKIN [Skin is warm, Skin is dry, Skin is normal color.] PSYCHIATRIC [Normal affect. ] Course - Re-evaluation Re-evalutation: 04/24/20 01:[address] Corley discussed with patient. Patient is aware that he will have a CAT scan done to look for possibility of a abscess that may need drainage. Patient is also aware he is getting admitted to the hospital for IV antibiotics and fluids. - Vital Signs Vital signs: Temp Pulse Resp BP Pulse Ox 98.6 F 96 20 180/86 H 100 04/23/20 21:31 04/23/20 21:31 04/23/20 21:31 04/23/20 21:31 04/23/20 21:31 - Laboratory Result Diagrams: 04/23/20 18:15 04/23/20 18:15 Laboratory results interpreted by me: 04/23/20 04/23/20 18:15 18:15 Hgb 11.9 L Hct 36.3 L MCV 78 L MCH 25.5 L RDW 15.5 H Plt Count 537 H Eos % (Auto) 6.2 H Sodium 135.7 L - Consults Dr. Corley, General Surgery Time consulted: 00:30 Reason for consultation: 04/24/20 00:45 persistent post operative wound drainage Consulted provider: will come to ER Discharge - Discharge Clinical Impression: Abdominal wall cellulitis Condition: Stable Disposition: ADMITTED OBSERVATION Admitting Provider: Giulia Jeffrey Unit Admitted: Surgical Floor Referrals: LOCALMD,NO [Primary Care Provider] - Follow up as needed
[2020-04-24] MEDS ORDERED: NORMAL SALINE 1000 ML 1,000 ML IV ONE (01:06)
[2020-04-24] MEDS ORDERED: PIPERACILLIN/TAZOBACTAM 3.375 GM VIAL IV ONE (01:07)
[2020-04-24] MEDS ORDERED: VANCOMYCIN HCL INJ 1000 MG VIAL IV ONE (01:08)
--- NOTE | 2020-04-24 01:16 | PDOC H&P ---
History of Present Illness Admission Date/PCP: NO LOCALDE Patient complains of: Abdominal wall drain site drainage History of Present Illness: JAZMINE LEO is a 34 year old male, morbidly obese, with prediabetes, status post umbilical herniorrhaphy for large incarcerated hernia on April 06, 2020. At that time, the hernia was repaired with bilateral component separation and absorbable inlay mesh placement. He was discharged to home on April 11, 2020. The patient was seen in the clinic about 1 week ago and his abdominal drains were removed. He was started on Keflex in the clinic. The patient returns to the emergency room complaining of purulent drainage from the right abdominal wall drain site, which prompted him to present to the emergency room. Past Medical History Pulmonary Medical History: Reports: Chronic Obstructive Pulmonary Disease (COPD), Pneumonia Endocrine Medical History: Reports: Diabetes Mellitus Type 2 Psychiatric Medical History: Denies: Depression Social History Smoking Status: Unknown if Ever Smoked Frequency of Alcohol Use: Rare Hx Recreational Drug Use: No Hx Prescription Drug Abuse: No Family History Family History: None, Reviewed & Not Pertinent Parental Family History Reviewed: No Children Family History Reviewed: No Sibling(s) Family History Reviewed.: No Medication/Allergy Home Medications: Hydrocodone/Acetaminophen [[place] 10-325 mg Tablet] 1 tab PO Q6HP PRN #20 tablet 04/10/20 Cephalexin Monohydrate [Keflex 500 mg Capsule] 500 mg PO TID 04/24/20 Allergies/Adverse Reactions: No Known Allergies Allergy (Verified 04/24/20 00:05) Physical Exam Vital Signs: Temp Pulse Resp BP Pulse Ox 98.6 F 96 20 180/86 H 100 04/23/20 21:31 04/23/20 21:31 04/23/20 21:31 04/23/20 21:31 04/23/20 21:31 Intake & Output 04/22/20 04/23/20 04/24/20 06:59 06:59 06:59 Weight 158.8 kg General appearance: PRESENT: no acute distress, obese Head exam: PRESENT: atraumatic, normocephalic Eye exam: PRESENT: EOMI Mouth exam: PRESENT: neck supple Teeth exam: PRESENT: poor dentation Neck exam: PRESENT: full ROM Respiratory exam: PRESENT: clear to auscultation juan Cardiovascular exam: PRESENT: RRR GI/Abdominal exam: PRESENT: soft, other - Anterior abdominal wall = diffuse induration, midline incision clean, dry, intact with tera in place, minimal erythema on the right side, purulent drainage occurring from the right lateral abdominal wall drain site Rectal exam: PRESENT: deferred Extremities exam: PRESENT: full ROM Musculoskeletal exam: PRESENT: full ROM Neurological exam: PRESENT: alert, awake, oriented to person, CN II-XII grossly intact Psychiatric exam: PRESENT: appropriate affect Skin exam: PRESENT: warm Results Laboratory Results: 04/23/20 18:15 04/23/20 18:15 04/23/20 04/23/20 18:15 18:15 WBC 9.8 RBC 4.67 Hgb 11.9 L Hct 36.3 L MCV 78 L MCH 25.5 L MCHC 32.8 RDW 15.5 H Plt Count 537 H Seg Neutrophils % 71.3 Sodium 135.7 L Potassium 4.3 Chloride 101 Carbon Dioxide 29 Anion Gap 6 BUN 7 Creatinine 0.72 Est GFR ( Amer) > 60 Glucose 99 Calcium 9.2 Total Bilirubin 0.6 AST 30 Alkaline Phosphatase 89 Total Protein 7.0 Albumin 3.5 Assessment & Plan - Time Anticipated Discharge Disposition: Home with Home Health Anticipated Discharge Timeframe: within 72 hours - Plan Summary Plan Summary: Assessment: Postoperative day #18 following repair of incarcerated/strangulated umbilical hernia with bilateral component separation and absorbable mesh Patient returns to the emergency room complaining of purulent drainage from the right abdominal wall drain site Physical exam demonstrates a thickened abdominal wall with midline incision clean, dry, intact Blood work within normal limits Plan: Admit N.p.o. IV fluids Vancomycin and Zosyn CT scan abdomen pelvis to rule out the presence of a subcutaneous abscess Possible IR drainage of fluid collection if it is identified on CT scan
[2020-04-24] MEDS ORDERED: ONDANSETRON HCL INJ/PF 4 MG/2 ML SDV IV PRN ×2 (01:24→10:38)
[2020-04-24] MEDS ORDERED: VANCOMYCIN HCL 0 MG in DEXTROSE 5%-WATER 250 ML IV NR (01:30)
--- NOTE | 2020-04-24 02:13 | PDOC CONSULTATION ---
Consultation Consult Date: 04/24/20 Attending physician:: JOSEPH JOHNSON Provider Consulted: JAYJAY BENTON Consult reason:: Prediabetes History of Present Illness Admission Date/PCP: NO LOCALMD History of Present Illness: JAZMINE LEO is a 34 year old male admitted by the surgical service for abdominal wall cellulitis status post abdominal wall hernia repair. He has not had anything to eat approximately 24 hours and yet his blood sugar is at the upper limit of normal. There was some concern the patient might be prediabetic which may affect how well he heals from his surgery and so the hospitalist service was consulted. The patient does not take any medications for his blood sugar at home. He said he takes no medications for anything except for the pain medicine and antibiotics he was started on after surgery. Past Medical History Medical History: Other - Patient denied any chronic medical issues to me Endocrine Medical History: Reports: Obesity Psychiatric Medical History: Denies: Depression Past Surgical History Past Surgical History: Reports: Other - Status post excision of strangulated abdominal wall hernia with mesh Social History Smoking Status: Unknown if Ever Smoked Frequency of Alcohol Use: Rare Hx Recreational Drug Use: No Hx Prescription Drug Abuse: No Family History Family History: None, Reviewed & Not Pertinent Parental Family History Reviewed: Yes Children Family History Reviewed: NA Sibling(s) Family History Reviewed.: Yes Medication/Allergy Home Medications: Hydrocodone/Acetaminophen [[place] 10-325 mg Tablet] 1 tab PO Q6HP PRN #20 tablet 04/10/20 Cephalexin Monohydrate [Keflex 500 mg Capsule] 500 mg PO TID 04/24/20 Allergies/Adverse Reactions: No Known Allergies Allergy (Verified 04/24/20 00:05) Review of Systems All systems: reviewed and no additional remarkable complaints except as stated - All systems were reviewed and were negative except as noted in HPI Physical Exam Vital Signs: Temp Pulse Resp BP Pulse Ox 98.0 F 92 18 142/72 H 100 04/24/20 01:26 04/24/20 01:26 04/24/20 01:26 04/24/20 01:26 04/24/20 01:26 Intake & Output 04/22/20 04/23/20 04/24/20 06:59 06:59 06:59 Weight 158.8 kg General appearance: PRESENT: no acute distress, cooperative, disheveled, morbidly obese Head exam: PRESENT: atraumatic, normocephalic Eye exam: PRESENT: EOMI, PERRLA. ABSENT: conjunctival injection, nystagmus, scleral icterus Ear exam: PRESENT: normal external ear exam Neck exam: PRESENT: full ROM. ABSENT: carotid bruit, JVD, lymphadenopathy, meningismus, tenderness, thyromegaly Respiratory exam: PRESENT: clear to auscultation juan, symmetrical, unlabored. ABSENT: accessory muscle use, chest wall tenderness, crackles, prolonged expiratory phas, rhonchi, tachypnea, wheezes Cardiovascular exam: PRESENT: RRR, +S1, +S2 Pulses: PRESENT: normal carotid pulses Vascular exam: PRESENT: normal capillary refill GI/Abdominal exam: PRESENT: normal bowel sounds, soft, other - He had an area on his abdominal pannus on the right side inferiorly which appeared to be an open sinus tract that was draining serosanguineous fluid, midline incision is approximated and somewhat indurated without any substantial surrounding erythema. ABSENT: distended, guarding, rebound, tenderness Extremities exam: ABSENT: clubbing, pedal edema Musculoskeletal exam: PRESENT: normal inspection. ABSENT: deformity Neurological exam: PRESENT: alert, awake, oriented to person, oriented to place, oriented to time, oriented to situation, CN II-XII grossly intact. ABSENT: motor sensory deficit Psychiatric exam: PRESENT: appropriate affect, normal mood Skin exam: PRESENT: dry, warm Results Laboratory Results: 04/23/20 18:15 04/23/20 18:15 04/23/20 04/23/20 18:15 18:15 WBC 9.8 RBC 4.67 Hgb 11.9 L Hct 36.3 L MCV 78 L MCH 25.5 L MCHC 32.8 RDW 15.5 H Plt Count 537 H Seg Neutrophils % 71.3 Sodium 135.7 L Potassium 4.3 Chloride 101 Carbon Dioxide 29 Anion Gap 6 BUN 7 Creatinine 0.72 Est GFR ( Amer) > 60 Glucose 99 Calcium 9.2 Total Bilirubin 0.6 AST 30 Alkaline Phosphatase 89 Total Protein 7.0 Albumin 3.5 Assessment and Plan - Diagnosis (1) Cellulitis, abdominal wall Is this a current diagnosis for this admission?: Yes (2) DANIELLA (obstructive sleep apnea) Is this a current diagnosis for this admission?: Yes (3) Smoker Is this a current diagnosis for this admission?: Yes (4) Venous hypertension of both lower extremities Is this a current diagnosis for this admission?: Yes (5) Morbid obesity with BMI of 50.0-59.9, adult Is this a current diagnosis for this admission?: Yes - Plan Summary Summary: Dr. Johnson is managing cellulitis and possible abscess as the primary on this case. He asked us to evaluate his blood sugars to see if they are substantially elevated at any point. It is interesting that he has not had anything to eat in 24 hours and yet his blood sugars at the upper limit of normal. We will put him on a as needed sliding scale and just monitor the trend in his sugars to see how he does. - Time Time Spent with patient: 35 or more minutes Anticipated Discharge Disposition: Unknown Anticipated Discharge Timeframe: Unknown
[2020-04-24] MEDS: FAMOTIDINE INJ/PF 20 MG/2 ML SDV IV SCH ×3 (02:27→23:06)
--- NOTE | 2020-04-24 04:17 | RADIOLOGY REPORT (SQ) ---
EXAM DESCRIPTION: CT ABDOMEN PELVIS WITH IV CONTRAST COMPLETED DATE/TME: 04/24/2020 03:23 CLINICAL HISTORY: s/p surgery with wound drainage COMPARISON: 09/18/2017 TECHNIQUE: CT of the abdomen and pelvis performed following IV administration of 100 mL Omnipaque 350. FINDINGS: Lung Bases: The visualized lung bases are clear. Bones: Mild degenerative endplate spondylosis. Abdomen: Liver: Hepatomegaly and decreased density. No intrahepatic biliary dilatation. Gallbladder: No calcified gallstones. Spleen, Pancreas, and Adrenal Glands: Splenomegaly. The pancreas and adrenal glands are unremarkable. Kidneys: No hydronephrosis or obstructing calculus. Vasculature: The aorta and IVC have normal caliber and position. The portal vein is patent. The proximal visceral and renal arteries are patent. Stomach: The stomach and duodenum have normal course. Other: No free intraperitoneal air. No free fluid or lymphadenopathy. Tera within the subcutaneous soft tissues of the abdominal wall. Fat stranding within the subcutaneous soft tissues of the anterior abdominal wall. There is ill-defined fluid collection subjacent to the surgical tera measuring approximately 8.9 x 4.4 x 8.4 cm. Pelvis: Bladder: Urinary bladder is decompressed. Mild wall thickening.. Bowel: No dilated loops of large or small bowel. Appendix: Normal appendix. Pelvis: Prostate is not enlarged. IMPRESSION: 1. Ill-defined fluid collection in the subcutaneous soft tissues of the anterior abdominal wall subjacent to midline surgical incision with diffuse surrounding soft tissue edema measuring up to 8.9 cm in greatest dimension. This may represent developing abscess, inflammatory phlegmon, or postoperative seroma. 2. Hepatomegaly and hepatic steatosis. 3. Splenomegaly. This exam was performed according to our departmental dose-optimization program, which includes automated exposure control, adjustment of the mA and/or kV according to patient size and/or use of iterative reconstruction technique.
[2020-04-24] MEDS ORDERED: PIPERACILLIN/TAZOBACTAM 4.5 GM VIAL IV SCH (06:00)
[2020-04-24] MEDS ORDERED: LIDOCAINE 2% INJ-PF (20 MG/ML) 10 ML AMPUL ONE (09:09)
[2020-04-24] MEDS ORDERED: FENTANYL CITRATE INJ/PF 100 MCG/2 ML AMPUL ONE (09:09)
[2020-04-24] MEDS ORDERED: MIDAZOLAM 2 MG/2 ML INJ ONE (09:09)
[2020-04-24] MEDS ORDERED: PROPOFOL INJ 200 MG/20 ML VIAL IV ONE (09:10)
[2020-04-24] MEDS ORDERED: ONDANSETRON HCL INJ/PF 4 MG/2 ML SDV ONE (09:10)
--- NOTE | 2020-04-24 09:11 | PDOC PROGRESS REPORT ---
Subjective Date:: 04/24/20 Subjective:: Patient is comfortable, without complaints Reason For Visit: ABDOMINAL WALL CELLULITIS Physical Exam Vital Signs: Temp Pulse Resp BP Pulse Ox 97.6 F 95 18 146/71 H 98 04/24/20 04:44 04/24/20 04:44 04/24/20 04:44 04/24/20 04:44 04/24/20 04:44 Intake & Output 04/23/20 04/24/20 04/25/20 06:59 06:59 06:59 Weight 157.8 kg General appearance: PRESENT: no acute distress, obese Respiratory exam: PRESENT: clear to auscultation juan Cardiovascular exam: PRESENT: RRR GI/Abdominal exam: PRESENT: normal bowel sounds, other - Large abdominal pannus nose secondary to obesity, midline incision clean, dry, and intact, with tera in place. Thickening of the subcutaneous tissue of the abdominal wall surrounding the midline incision as per edema; drainage of the purulent material from the right abdominal wall drain site Results Laboratory Results: 04/23/20 18:15 04/23/20 18:15 04/23/20 04/23/20 18:15 18:15 WBC 9.8 RBC 4.67 Hgb 11.9 L Hct 36.3 L MCV 78 L MCH 25.5 L MCHC 32.8 RDW 15.5 H Plt Count 537 H Seg Neutrophils % 71.3 Sodium 135.7 L Potassium 4.3 Chloride 101 Carbon Dioxide 29 Anion Gap 6 BUN 7 Creatinine 0.72 Est GFR ( Amer) > 60 Glucose 99 Calcium 9.2 Total Bilirubin 0.6 AST 30 Alkaline Phosphatase 89 Total Protein 7.0 Albumin 3.5 Impressions: Abdomen/Pelvis CT 04/24/20 01:03 IMPRESSION: 1. Ill-defined fluid collection in the subcutaneous soft tissues of the anterior abdominal wall subjacent to midline surgical incision with diffuse surrounding soft tissue edema measuring up to 8.9 cm in greatest dimension. This may represent developing abscess, inflammatory phlegmon, or postoperative seroma. 2. Hepatomegaly and hepatic steatosis. 3. Splenomegaly. This exam was performed according to our departmental dose-optimization program, which includes automated exposure control, adjustment of the mA and/or kV according to patient size and/or use of iterative reconstruction technique. Assessment & Plan - Diagnosis (1) Cellulitis, abdominal wall Is this a current diagnosis for this admission?: Yes - Time Anticipated Discharge Disposition: Home with Home Health Anticipated Discharge Timeframe: Not ready - Plan Summary Plan Summary: Assessment: Postoperative day #19 following repair of incarcerated/strangulated umbilical hernia with bilateral component separation and absorbable mesh Patient returns to the emergency room complaining of purulent drainage from the right abdominal wall drain site (04/06/20 ( Physical exam demonstrates a thickened abdominal wall, midline incision clean, dry, intact Purulent drainage from the right lateral abdominal wall drain site, cultures pending CT scan abdomen pelvis reveals a subcutaneous phlegmon versus evolving abscess deep and below the midline abdominal surgical incision Blood work within normal limits Plan: Abdominal surgical wound washout, intraoperative cultures and packing today Procedure, risks, benefits, complications, alternatives have been discussed with the patient, including bleeding, wound infection, blood clots to the lungs and lower extremities, pneumonia, diabetes related complications, and . The patient understands all the above, his questions were answered to his satisfaction, and he decides to proceed.
[2020-04-24] MEDS ORDERED: LIDOCAINE 1% INJ-PF (10 MG/ML) 30 ML SDV ONE (09:48)
[2020-04-24] MEDS ORDERED: PIPERACILLIN/TAZOBACTAM 4.5 GM VIAL IV ONE (10:24)
[2020-04-24] MEDS ORDERED: MEPERIDINE HCL/PF INJ 25 MG/1 ML DISP.SYRIN IV PRN (10:38)
[2020-04-24] MEDS ORDERED: PROMETHAZINE HCL INJ 25 MG/1 ML VIAL IV PRN ×2 (10:38)
[2020-04-24] MEDS ORDERED: FENTANYL CITRATE INJ/PF 100 MCG/2 ML AMPUL IV PRN ×3 (10:38)
[2020-04-24] MEDS ORDERED: DIPHENHYDRAMINE HCL 50 MG/ML VIAL IV PRN (10:38)
--- NOTE | 2020-04-24 11:05 | Operative Report ---
Operative Report DATE OF SURGERY: 04/24/20 PREOPERATIVE DIAGNOSIS: Abdominal wall surgical wound abscess POSTOPERATIVE DIAGNOSIS: Same OPERATION: Incision and drainage of abdominal surgical wound abscess SURGEON: JOSEPH JOHNSON ANESTHESIA: GA - Blasts 35 mL of half percent Marcaine TISSUE REMOVED OR ALTERED: 30 mL of pus COMPLICATIONS: None ESTIMATED BLOOD LOSS: Negligible less than 10 mL INTRAOPERATIVE FINDINGS: Large subcutaneous abscess cavity located along the midline surgical incision below the umbilicus PROCEDURE: The procedure was done in the operating room, the patient was placed in a supine position, general anesthesia was induced by endotracheal intubation by the anesthesiologist, the area of the abscess which was located along the midline surgical laparotomy incision below the umbilicus was prepped and draped in usual fashion. The incision's tera where removed and there healed skin incision was open with sharp scissors down to fascia. Large subcutaneous cavity filled with a moderate amount of pus was defied, this was sent for aerobic, anaerobic, cultures and Gram stain and fully suctioned. The incision was open along the entire size of the abscess which measured approximately 15 cm in length. After this, a finger was inserted inside the abscess cavity and the anterior abdominal wall rectus fascia was found to be intact. Following this, the abscess cavity was irrigated with 3 L of normal saline via jet lavage. The abscess cavity was packed with 4 inch wide Kerlix roll soaked in a 50-50 normal saline 2 Betadine solution, covered with dry ABDs, and tape The patient tolerated procedure well, was extubated, and transferred to the recovery room in satisfactory conditions.
[2020-04-24] MEDS ORDERED: KETOROLAC TROMETHAMINE INJ/PF 30 MG/1 ML SDV IV SCH (11:15)
[2020-04-24] MEDS: PIPERACILLIN SODIUM/TAZOBACTAM 4.5 GM in NORMAL SALINE 100 ML IV SCH ×3 (13:27→23:05)
[2020-04-24] MEDS: VANCOMYCIN HCL 1,250 MG in DEXTROSE 5%-WATER 250 ML IV SCH ×2 (13:35→23:09)
[2020-04-24] MEDS ORDERED: SUCCINYLCHOLINE CHLORIDE INJ 200 MG/10 ML VIAL ONE (16:35)
--- NOTE | 2020-04-24 18:46 | Progress Note ---
Provider Note Provider Note: The patient was seen and examined at bedside. Denies any new complaints besides minimal pain where his cellulitis is at. He insists that he is not diabetic and does not understand why we need to see him. He denies any family history of diabetes and his A1c is 5.1 which is normal. According to the nurses he has refused Accu-Cheks as well which is okay. We will sign off at this time please call with any questions.
[2020-04-24] MEDS: ENOXAPARIN SODIUM INJ 40 MG/0.4 ML DISP.SYRIN SUBCUT SCH (23:00)
[2020-04-25] MEDS: VANCOMYCIN HCL 1,250 MG in DEXTROSE 5%-WATER 250 ML IV SCH (03:31)
[2020-04-25 06:15] LABS: ABSOLUTE BASOPHILS # (AUTO) 0.1 10^3/uL (0.0-0.2); ABSOLUTE EOSINOPHILS # (AUTO) 0.6 10^3/uL (0.0-0.6); ABSOLUTE LYMPHOCYTES (AUTO) 1.4 10^3/uL (0.5-4.7); ABSOLUTE MONOCYTES (AUTO) 0.6 10^3/uL (0.1-1.4); ABSOLUTE NEUT (AUTO) 5.2 10^3/uL (1.7-8.2); BASOPHILS % (AUTO) 0.6 % (0-2); EOSINOPHILS % (AUTO) 8.3 % (0-6); HEMATOCRIT 32.8 % (37.9-51.0); LYMPHOCYTES % (AUTO) 17.2 % (13-45); MEAN CORPUSCULAR HEMOGLOBIN 25.9 pg (27.0-33.4); MEAN CORPUSCULAR HGB CONC 33.6 g/dL (32.0-36.0); MEAN CORPUSCULAR VOLUME 77 fl (80-97); MONOCYTES % (AUTO) 7.6 % (3-13); PLATELET COUNT 434 10^3/uL (150-450); RED BLOOD COUNT 4.25 10^6/uL (4.35-5.55); RED CELL DISTRIBUTION WIDTH 15.6 % (11.5-14.0); SEGMENTED NEUTROPHILS % (AUTO) 66.3 % (42-78); TOTAL CELLS COUNTED % (AUTO) 100 %; WHITE BLOOD COUNT 7.9 10^3/uL (4.0-10.5)
[2020-04-25] MEDS: PIPERACILLIN SODIUM/TAZOBACTAM 4.5 GM in NORMAL SALINE 100 ML IV SCH (06:20)
[2020-04-25 06:52] LABS: ANION GAP 10 (5-19); BLOOD UREA NITROGEN 5 mg/dL (7-20); CALCIUM 8.8 mg/dL (8.4-10.2); CARBON DIOXIDE 23 mmol/L (22-30); CHLORIDE 104 mmol/L (98-107); GLUCOSE 116 mg/dL (75-110); POTASSIUM 4.1 mmol/L (3.6-5.0)
[2020-04-25] MEDS ORDERED: HYDROCODONE/ACETAMINOPHEN 10-325 MG TABLET PO PRN (08:53)
--- NOTE | 2020-04-25 08:58 | PDOC PROGRESS REPORT ---
Subjective Date:: 04/25/20 Reason For Visit: ABDOMINAL WALL CELLULITIS Physical Exam Vital Signs: Temp Pulse Resp BP Pulse Ox 98.5 F 93 19 118/66 97 04/24/20 23:36 04/24/20 23:36 04/24/20 23:36 04/24/20 23:36 04/24/20 23:36 Intake & Output 04/24/20 04/25/20 04/26/20 06:59 06:59 06:59 Intake Total 1700 250 Output Total 0 Balance 1700 250 Weight 157.8 kg Results Laboratory Results: 04/25/20 05:55 04/25/20 05:55 04/25/20 04/25/20 05:55 05:55 WBC 7.9 RBC 4.25 L Hgb 11.0 L Hct 32.8 L MCV 77 L MCH 25.9 L MCHC 33.6 RDW 15.6 H Plt Count 434 Seg Neutrophils % 66.3 Sodium 136.9 L Potassium 4.1 Chloride 104 Carbon Dioxide 23 Anion Gap 10 BUN 5 L Creatinine 0.79 Est GFR ( Amer) > 60 Glucose 116 H Calcium 8.8 Impressions: Abdomen/Pelvis CT 04/24/20 01:03 IMPRESSION: 1. Ill-defined fluid collection in the subcutaneous soft tissues of the anterior abdominal wall subjacent to midline surgical incision with diffuse surrounding soft tissue edema measuring up to 8.9 cm in greatest dimension. This may represent developing abscess, inflammatory phlegmon, or postoperative seroma. 2. Hepatomegaly and hepatic steatosis. 3. Splenomegaly. This exam was performed according to our departmental dose-optimization program, which includes automated exposure control, adjustment of the mA and/or kV according to patient size and/or use of iterative reconstruction technique. Assessment & Plan - Diagnosis (1) Abdominal wall abscess at site of surgical wound Is this a current diagnosis for this admission?: Yes - Time Anticipated Discharge Disposition: Home with Home Health Anticipated Discharge Timeframe: within 48 hours - Plan Summary Plan Summary: 34 y/o morbidly obese male status post incision and drainage/washout of infected surgical site. His wound is open. There is no active purulence. I have changed the dressing at bedside today. Continue with damp to dry packing twice daily. Consult social work to arrange home health. Discharge once home health has been arranged, and the patient is comfortable with dressing changes.
[2020-04-25] MEDS: FAMOTIDINE INJ/PF 20 MG/2 ML SDV IV SCH ×2 (09:00→22:49)
[2020-04-25] MEDS: ENOXAPARIN SODIUM INJ 40 MG/0.4 ML DISP.SYRIN SUBCUT SCH ×2 (09:00→09:03)
[2020-04-25] MEDS: SULFAMETHOXAZOLE/TRIMETHOPRIM 800-160 MG TABLET PO SCH ×2 (10:01→17:11)
[2020-04-25 10:17] LABS: VANCOMYCIN,TROUGH 11.9 ug/mL (5.0-20.0)
[2020-04-26 06:37] LABS: ABSOLUTE EOSINOPHILS # (AUTO) 0.7 10^3/uL (0.0-0.6); ABSOLUTE LYMPHOCYTES (AUTO) 1.7 10^3/uL (0.5-4.7); ABSOLUTE MONOCYTES (AUTO) 0.4 10^3/uL (0.1-1.4); ABSOLUTE NEUT (AUTO) 4.5 10^3/uL (1.7-8.2); BASOPHILS % (AUTO) 0.6 % (0-2); HEMOGLOBIN 11.2 g/dL (13.5-17.0); LYMPHOCYTES % (AUTO) 23.2 % (13-45); MEAN CORPUSCULAR HEMOGLOBIN 25.3 pg (27.0-33.4); MEAN CORPUSCULAR HGB CONC 32.9 g/dL (32.0-36.0); MEAN CORPUSCULAR VOLUME 77 fl (80-97); PLATELET COUNT 416 10^3/uL (150-450); RED BLOOD COUNT 4.41 10^6/uL (4.35-5.55); RED CELL DISTRIBUTION WIDTH 15.9 % (11.5-14.0); SEGMENTED NEUTROPHILS % (AUTO) 61.2 % (42-78); TOTAL CELLS COUNTED % (AUTO) 100 %; WHITE BLOOD COUNT 7.3 10^3/uL (4.0-10.5)
[2020-04-26 07:09] LABS: ANION GAP 12 (5-19); BLOOD UREA NITROGEN 5 mg/dL (7-20); CARBON DIOXIDE 25 mmol/L (22-30); CHLORIDE 101 mmol/L (98-107); GLUCOSE 87 mg/dL (75-110); POTASSIUM 4.3 mmol/L (3.6-5.0)
[2020-04-26] MEDS: ENOXAPARIN SODIUM INJ 40 MG/0.4 ML DISP.SYRIN SUBCUT SCH (10:30)
[2020-04-26] MEDS: FAMOTIDINE INJ/PF 20 MG/2 ML SDV IV SCH (10:35)
[2020-04-26] MEDS: SULFAMETHOXAZOLE/TRIMETHOPRIM 800-160 MG TABLET PO SCH ×2 (10:35→16:58)
--- NOTE | 2020-04-26 14:02 | PDOC PROGRESS REPORT ---
Subjective Date:: 04/26/20 Reason For Visit: ABDOMINAL WALL CELLULITIS Patient sitting in chair. Tolerating diet. Physical Exam Vital Signs: Temp Pulse Resp BP Pulse Ox 98.4 F 88 18 121/54 L 97 04/26/20 12:47 04/26/20 12:47 04/26/20 12:47 04/26/20 12:47 04/26/20 12:47 Intake & Output 04/25/20 04/26/20 04/27/20 06:59 06:59 06:59 Intake Total 1700 1190 Output Total 0 Balance 1700 1190 Weight 148.1 kg General appearance: PRESENT: no acute distress GI/Abdominal exam: PRESENT: other - Abdomen examined. All packing removed. Base of wound bed granulating, no foul smell or active drainage. Results Laboratory Results: 04/26/20 06:01 04/26/20 06:01 04/26/20 04/26/20 06:01 06:01 WBC 7.3 RBC 4.41 Hgb 11.2 L Hct 34.0 L MCV 77 L MCH 25.3 L MCHC 32.9 RDW 15.9 H Plt Count 416 Seg Neutrophils % 61.2 Sodium 137.7 Potassium 4.3 Chloride 101 Carbon Dioxide 25 Anion Gap 12 BUN 5 L Creatinine 0.94 Est GFR ( Amer) > 60 Glucose 87 Calcium 9.0 04/24/20 10:38 Abdomen - Incision Site Gram Stain - Final 04/24/20 10:38 Abdomen - Incision Site Wound Culture - Final Staphylococcus Aureus No Anaerobic Organisms 04/24/20 01:14 Abdomen - Incision Site Gram Stain - Final 04/24/20 01:14 Abdomen - Incision Site Wound Culture - Final Staphylococcus Aureus Skin Dana No Anaerobic Organisms Impressions: Abdomen/Pelvis CT 04/24/20 01:03 IMPRESSION: 1. Ill-defined fluid collection in the subcutaneous soft tissues of the anterior abdominal wall subjacent to midline surgical incision with diffuse surrounding soft tissue edema measuring up to 8.9 cm in greatest dimension. This may represent developing abscess, inflammatory phlegmon, or postoperative seroma. 2. Hepatomegaly and hepatic steatosis. 3. Splenomegaly. This exam was performed according to our departmental dose-optimization program, which includes automated exposure control, adjustment of the mA and/or kV according to patient size and/or use of iterative reconstruction technique. Assessment & Plan - Diagnosis (1) Abdominal wall abscess at site of surgical wound Is this a current diagnosis for this admission?: Yes Plan: Impression: Morbid obese white male 3 days status post a debridement of abdominal wall infection at surgical site, wound well, septic source controlled, with wound granulation tissue wound bed. Recommendations: 1. Patient can be managed on outpatient basis with daily dressing changes, wet-to-dry, with gauze. Patient is reluctant to engage family in dressing changes however there is no indication for patient to stay in the hospital. We will solicit assistance of home health services. 2. Patient growing staph aureus sensitive to most organisms; therefore we will continue Bactrim p.o. - Time Anticipated Discharge Disposition: Home, Self Care Anticipated Discharge Timeframe: within 24 hours
[2020-04-26 17:25] VITALS: BP 127/62
--- NOTE | 2020-04-28 16:37 | PDOC DISCHARGE SUMMARY ---
General - Admit/Disc Date/PCP Admission Date/Primary Care Provider: 04/24/20 01:29 NO LOCALMD Discharge Date: 04/26/20 - Discharge Diagnosis Final Diagnosis: Surgical site wound infection, anterior midline abdominal wall - Assessment Summary: Summary: The patient a 34-year-old obese male history of smoking, less than 1 month status post abdominal wall hernia repair with incarcerated small bowel. Patient was discharged home, followed up in the clinic, had drain removed, then presented to the emergency department with abdominal pain, swelling, drainage. Patient was found to have cellulitis of the intra-abdominal wall and superficial wound infection requiring drainage The patient was taken to the operating room by Dr. Corley and had his skin and subcutaneous tissue opened at the previous midline incision, wound irrigated and packed open. Patient grew Staph aureus, non-MRSA and was maintained on IV fluids IV antibiotics and dressing changes. He improved clinically and by the fourth hospital day was ready for discharge home. Patient was discharged home to care of his family, with home health assisting on daily dressing changes wet-to-dry, or increase to twice a day pending volume of drainage. Patient will take Bactrim p.o. double strength twice daily, and prescription provided. He will follow up with [facility] in [address] Corley is managing cellulitis and possible abscess as the primary on this case. He asked us to evaluate his blood sugars to see if they are substantially elevated at any point. It is interesting that he has not had anything to eat in 24 hours and yet his blood sugars at the upper limit of normal. We will put him on a as needed sliding scale and just monitor the trend in his sugars to see how he does. - Additional Information Resuscitation Status: Full Code Discharge Diet: As Tolerated Discharge Activity: Activity As Tolerated, Balance Activity w/Rest Referrals: [facility] [Provider Group] - 05/05/20 8:45 am [facility] [Outside] (Damp to dry dressing changes twice daily. Home health for intermediate for wound care and dressing changes.) Home Medications: Hydrocodone/Acetaminophen [[place] 10-325 mg Tablet] 1 tab PO Q6HP PRN #20 tablet MDD filled 04/10 for 5 day supply 04/10/20 Cephalexin Monohydrate [Keflex 500 mg Capsule] 500 mg PO TID MDD filled 04/19 for 10 day supply 04/24/20 History of Present Illiness History of Present Illness: JAZMINE LEO is a 34 year old male Physical Exam Vital Signs: Temp Pulse Resp BP Pulse Ox 98.4 F 88 18 146/71 H 97 04/26/20 16:12 04/26/20 16:12 04/26/20 16:12 04/26/20 16:12 04/26/20 16:12 Intake & Output 04/27/20 04/28/20 04/29/20 06:59 06:59 06:59 Intake Total 118 Balance 118 Results Laboratory Results: WBC 7.3 10^3/uL (4.0-10.5) 04/26/20 06:01 RBC 4.41 10^6/uL (4.35-5.55) 04/26/20 06:01 Hgb 11.2 g/dL (13.5-17.0) L 04/26/20 06:01 Hct 34.0 % (37.9-51.0) L 04/26/20 06:01 MCV 77 fl (80-97) L 04/26/20 06:01 MCH 25.3 pg (27.0-33.4) L 04/26/20 06:01 MCHC 32.9 g/dL (32.0-36.0) 04/26/20 06:01 RDW 15.9 % (11.5-14.0) H 04/26/20 06:01 Plt Count 416 10^3/uL (150-450) 04/26/20 06:01 Lymph % (Auto) 23.2 % (13-45) 04/26/20 06:01 [place] % (Auto) 6.0 % (3-13) 04/26/20 06:01 Eos % (Auto) 9.0 % (0-6) H 04/26/20 06:01 Baso % (Auto) 0.6 % (0-2) 04/26/20 06:01 Absolute Neuts (auto) 4.5 10^3/uL (1.7-8.2) 04/26/20 06:01 Absolute Lymphs (auto) 1.7 10^3/uL (0.5-4.7) 04/26/20 06:01 Absolute Monos (auto) 0.4 10^3/uL (0.1-1.4) 04/26/20 06:01 Absolute Eos (auto) 0.7 10^3/uL (0.0-0.6) H 04/26/20 06:01 Absolute Basos (auto) 0.0 10^3/uL (0.0-0.2) 04/26/20 06:01 Seg Neutrophils % 61.2 % (42-78) 04/26/20 06:01 Sodium 137.7 mmol/L (137-145) 04/26/20 06:01 Potassium 4.3 mmol/L (3.6-5.0) 04/26/20 06:01 Chloride 101 mmol/L (98-107) 04/26/20 06:01 Carbon Dioxide 25 mmol/L (22-30) 04/26/20 06:01 Anion Gap 12 (5-19) 04/26/20 06:01 BUN 5 mg/dL (7-20) L 04/26/20 06:01 Creatinine 0.94 mg/dL (0.52-1.25) 04/26/20 06:01 Est GFR ( Amer) > 60 (>60) 04/26/20 06:01 Est GFR (MDRD) Non-Af > 60 (>60) 04/26/20 06:01 Glucose 87 mg/dL (75-110) 04/26/20 06:01 POC Glucose 92 mg/dL (70-110) 04/26/20 15:13 Hemoglobin A1c % 5.1 % (4.7-6.0) 04/24/20 12:27 Calcium 9.0 mg/dL (8.4-10.2) 04/26/20 06:01 Total Bilirubin 0.6 mg/dL (0.2-1.3) 04/23/20 18:15 Direct Bilirubin 0.3 mg/dL (0.0-0.4) 04/23/20 18:15 Neonat Total Bilirubin Not Reportable 04/23/20 18:15 Neonat Direct Bilirubin Not Reportable 04/23/20 18:15 Neonat Indirect Bili Not Reportable 04/23/20 18:15 AST 30 U/L (17-59) 04/23/20 18:15 ALT 30 U/L (<50) 04/23/20 18:15 Alkaline Phosphatase 89 U/L (38-126) 04/23/20 18:15 Total Protein 7.0 g/dL (6.3-8.2) 04/23/20 18:15 Albumin 3.5 g/dL (3.5-5.0) 04/23/20 18:15 Time Trough Drawn 92704/25/20 09:28 Vancomycin Trough 11.9 ug/mL (5.0-20.0) 04/25/20 09:28 Influenza A (RT-PCR) NEGATIVE (NEGATIVE) 04/24/20 01:50 Influenza B (RT-PCR) NEGATIVE (NEGATIVE) 04/24/20 01:50 RSV (RT-PCR) NEGATIVE (NEGATIVE) 04/24/20 01:50 SARS-CoV-2 Rap RNA(RT-PCR) NEGATIVE (NEGATIVE) 04/24/20 01:50 Impressions: Abdomen/Pelvis CT 04/24/20 01:03 IMPRESSION: 1. Ill-defined fluid collection in the subcutaneous soft tissues of the anterior abdominal wall subjacent to midline surgical incision with diffuse surrounding soft tissue edema measuring up to 8.9 cm in greatest dimension. This may represent developing abscess, inflammatory phlegmon, or postoperative seroma. 2. Hepatomegaly and hepatic steatosis. 3. Splenomegaly. This exam was performed according to our departmental dose-optimization program, which includes automated exposure control, adjustment of the mA and/or kV according to patient size and/or use of iterative reconstruction technique.
== END 2020-04-26 17:17 | disposition home health service (06) | DRG 857 ==
LOC: ER 15:00 → EH 04-24 01:29 → 4S 04-24 04:35
PROVIDERS: ATTEND Surgery
PROC: 0JD80ZZ Extraction of Abdomen Subcutaneous Tissue and Fascia, Open Approach (ICD-10-PCS; principal; 2020-04-24 10:00)
DX: T81.49XA Infection following a procedure, other surgical site, initial encounter (principal); L03.311 Cellulitis of abdominal wall; L02.211 Cutaneous abscess of abdominal wall; B95.61 Methicillin susceptible Staphylococcus aureus infection as the cause of diseases classified elsewhere; Y83.8 Other surgical procedures as the cause of abnormal reaction of the patient, or of later complication, without mention of misadventure at the time of the procedure; R73.03 Prediabetes; J44.9 Chronic obstructive pulmonary disease, unspecified; E66.01 Morbid (severe) obesity due to excess calories; Z20.828 Contact with and (suspected) exposure to other viral communicable diseases; F17.200 Nicotine dependence, unspecified, uncomplicated
CPT/HCPCS: 00800; 36415; 74177; 80048; 80053; 80202; 82962; 83036; 85025; 87040; 87070; 87075; 87077; 87186; 87205; 94660; 0241U; C9803; J0330; J1650; J2250; J2405; J2543; J2704; J3010; J3370; J3490; J7030; J7050; J7060; S0028